=== PATIENT | female | born 1940 | race Caucasian/White ===

== ENCOUNTER → 2016-08-20 | Outpatient (CLI) | payer OTHER ==
[~2016-08-20] MED LIST: ACT35 PO; ASCO1CAP3 PO; CALCTAB7 PO; CHOL100027 PO; CYCL5TAB PO; GLUC10007 PO; MCRK/10 PO; MULT-223 PO; POTA10CA PO; PRED10TA PO; SIMV5TAB5 OR; TRAM-10 PO; TRIA37.5 PO; TRIAM/HCTZ
--- NOTE | 2016-08-20 14:11 | DIAGNOSTIC IMAGING REPORT ---
LEFT KNEE 1 OR 2 VIEWS ROUTINE CLINICAL HISTORY: Limited range of motion. COMPARISON: None FINDINGS: Alignment of the left knee is anatomic. There is no fracture. There is a possible small left knee joint effusion. There is extensive chondrocalcinosis within the menisci. There is chondrocalcinosis within the joint space. There is mild joint space narrowing within the medial compartment with osteophytosis. IMPRESSION: 1. No acute fracture. 2. Small left knee joint effusion. 3. Extensive chondrocalcinosis. 4. Mild to moderate arthritis within the medial compartment of the left knee. Electronically signed by: Alex Lester M.D. 08/20/2016 2:10 PM Dictated Date/Time: 08/20/2016 2:09 PM
== END | disposition home or self-care (01) ==
LOC: C.RADBC 13:01
PROVIDERS: ATTEND Nurse Practitioner Family
DX: M11.262 Other chondrocalcinosis, left knee (principal); M17.12 Unilateral primary osteoarthritis, left knee

== ENCOUNTER 2017-01-31 14:05 | Emergency (ER) | payer OTHER ==
[~2017-01-31] VITALS: Ht 162.6 cm; Wt 83.8 kg
[~2017-01-31 14:05] MED LIST changes: -ASCO1CAP3 PO; -CALCTAB7 PO; -CHOL100027 PO; -CYCL5TAB PO; -GLUC10007 PO; -MCRK/10 PO; -MULT-223 PO; -PRED10TA PO; -TRAM-10 PO; -TRIA37.5 PO
[2017-01-31 14:09] VITALS: TEMP 36.7; Ht 162.6 cm; Wt 83.8 kg
[2017-01-31] MEDS ORDERED: ONDANSETRON INJ 2 MG/ML 2 ML VIAL IV STA (14:32)
[2017-01-31] MEDS ORDERED: FENTANYL CITRATE INJ 50 MCG/1 ML 2 ML VIAL IV STA (14:32)
--- NOTE | 2017-01-31 14:55 | DIAGNOSTIC IMAGING REPORT ---
CHEST ONE VIEW PORTABLE CLINICAL HISTORY: Neck pain. Headache. COMPARISON STUDY: Chest radiograph July 31, 2012. FINDINGS: Lung volumes are normal. There is no consolidation to suggest pneumonia. No pneumothorax or pleural effusion is present. Cardiac size is normal. Mediastinal contours are normal. IMPRESSION: No acute cardiopulmonary findings. Electronically signed by: Alex Lester M.D. 01/31/2017 2:53 PM Dictated Date/Time: 01/31/2017 2:53 PM
[2017-01-31 15:27] LABS: BASO % 0.5 %; BASO ABS # 0.05 K/uL (0-0.2); COMPLETE YES; EOS % 2.1 %; HEMATOCRIT 43.3 % (37-47); IG% 0.1 %; LYMPH % 17.9 %; LYMPH ABS # 1.85 K/uL (1.2-3.4); MEAN CELL VOLUME 94.1 fL (80-100); MEAN CORPUSCULAR HEMOGLOBIN 32.4 pg (25-34); MEAN CORPUSCULAR HGB CONC 34.4 g/dl (32-36); MEAN PLATELET VOLUME 10.5 fL (7.4-10.4); MONO % 5.8 %; NEUT % 73.6 %; PLATELET COUNT 283 K/uL (130-400); WHITE BLOOD COUNT 10.34 K/uL (4.8-10.8)
--- NOTE | 2017-01-31 15:29 | EMERGENCY ROOM VISIT NOTE ---
History Report prepared by Vanessa: Salma Smith Under the Supervision of: Dr. Nikki Salinas M.D. First contact with patient: 14:26 Chief Complaint: HEADACHE Stated Complaint: SEVERE NECK AND HEADACHES History of Present Illness The patient is a 76 year old female who presents to the Emergency Room with complaints of severe and worsening headache and neck pain starting about a week ago. She describes pain radiation from the right side of her neck to the right side of her head. She denies any pain radiation to her arm. She has neck pain when she goes to sleep in an awkward position but the neck pain has never radiated to her head. The patient was traveling to [place] on an airplane when she had an onset of her pain. She states that she might have fallen asleep during the plane ride. The patient was evaluated by her chiropractor without relief. She states that her chiropractor did not manipulate her neck. She has also been taking Aspirin with some relief. She reports a normal appetite and a normal fluid intake. She denies any recent head trauma/injuries, speech/vision issues, nausea, vomiting, or any other complaints. She has a history of breast cancer. She is a never smoker. Source of History: patient Onset: about a week ago Position: head, neck Symptom Intensity: severe Timing: worsening Modifying Factors (Relieving): other (Aspirin with some relief, chiropractor without relief) Associated Symptoms: No nausea, No vomiting Review of Systems See HPI for pertinent positives & negatives. A total of 10 systems reviewed and were otherwise negative. Past Medical & Surgical Medical Problems: (1) Breast cancer Surgical Problems: (1) H/O mastectomy (2) History of appendectomy Family History Cancer Heart disease Lung disease Social History Smoking Status: Never Smoker Alcohol Use: occasionally Marital Status: Housing Status: lives with significant other Current/Historical Medications Scheduled Ascorbic Acid (Vitamin C), 1 CAP PO DAILY Calcium Carbonate-Vitamin D W/ (Caltrate 600 Plus), 1 TAB PO BID Cholecalciferol (Vitamin D 1000 Unit), 1,000 INTER.UNIT PO DAILY Glucosamine Sulfate (Glucosamine), 1,000 MG PO DAILY Multiple Vitamins W/ Minerals (Multi For Her 50+), 1 TAB PO DAILY Potassium Chloride (K-Tabs), 30 MEQ PO BID Prednisone Tab (Prednisone), 10 MG PO DIRECTED Simvastatin (Zocor), 5 MG OR DAILY Triamterene/Hctz (Dyazide 37.5MG/25MG), 1 TAB PO DAILY Scheduled PRN Cyclobenzaprine Hcl (Flexeril), 5 MG PO TID PRN for Muscle Spasms Tramadol (Ultram), 1 TABS PO Q6 PRN for Pain Allergies Coded Allergies: No Known Allergies (Unverified , 01/31/17) Physical Exam Vital Signs Date Time Temp Pulse Resp B/P (MAP) Pulse Ox O2 Delivery O2 Flow Rate FiO2 01/31/17 20:15 66 18 185/96 97 01/31/17 18:46 77 20 195/86 99 Room Air 01/31/17 16:30 64 20 163/86 98 Room Air 01/31/17 15:00 61 01/31/17 14:09 36.7 76 22 204/97 98 Room Air Physical Exam Vital signs reviewed. General: Elderly, well-appearing, in no significant distress, ambulating without difficulty, neurologically intact. HEENT: No scleral icterus, PERRLA, neck supple. Atraumatic. No tenderness to palpation acing the cervical spine. No meningeal signs but limited range of motion of the neck from side to side secondary to discomfort. Cardiovascular: Regular rate and rhythm, no extra sounds. Pulmonary: Clear to auscultation bilaterally, normal work of breathing. Abdomen: Soft, nontender, nondistended, positive bowel sounds. Musculoskeletal: Atraumatic, no peripheral edema. Neurologic: Patient awake alert and oriented x 3, full strength in all 4 extremities. Cranial nerves 2 through 12 grossly intact. Skin: Warm, dry, no rash Medical Decision & Procedures ER Provider Diagnostic Interpretation: X-ray results as stated below per interpretation by me and the radiologist: CHEST ONE VIEW PORTABLE CLINICAL HISTORY: Neck pain. Headache. COMPARISON STUDY: Chest radiograph July 31, 2012. FINDINGS: Lung volumes are normal. There is no consolidation to suggest pneumonia. No pneumothorax or pleural effusion is present. Cardiac size is normal. Mediastinal contours are normal. IMPRESSION: No acute cardiopulmonary findings. Electronically signed by: Alex Lester M.D. 01/31/2017 2:53 PM Dictated Date/Time: 01/31/2017 2:[address] ANGIOGRAM OF THE BRAIN; CT ANGIOGRAM OF THE NECK CLINICAL HISTORY: Headache. Neck pain. COMPARISON STUDY: Carotid artery ultrasound dated 10/13/2016. Unenhanced CT of the brain performed the same day 01/31/2017. TECHNIQUE: Following the IV administration of 112 of Optiray 320, CT angiogram of the head and neck was performed from the aortic arch to the vertex. Images are reviewed in the axial, sagittal, and coronal planes. 3-D MIPS images are created and assessed. IV contrast was administered without complication. All measurements were calculated based on NASCET criteria. CT DOSE: 527.37 mGy.cm FINDINGS: Brain parenchyma: There are age-related involutional changes noting minimal periventricular microangiopathic disease. There is no hemorrhage, mass effect, or evidence of acute territorial ischemia by CT criteria. There is no evidence of enhancing mass lesion on the angiogram phase images. The ventricles, sulci, and cisterns are normal in configuration. Horta-white matter differentiation is preserved. No extra-axial fluid collection is seen. Thoracic aorta: There is atherosclerotic calcification of the visualized thoracic aorta. Imaged portions of the thoracic aorta are normal in caliber. The aortic arch demonstrates standard 3-vessel anatomy. Right carotid arterial system: The right common carotid artery is widely patent, as are the right internal and external carotid arteries. Atherosclerotic calcification is noted in the carotid bulb. Left carotid arterial system: The left common carotid artery is widely patent, as are the left internal and external carotid arteries. Atherosclerotic calcification is noted in the carotid bulb. Vertebral arteries: The vertebral arteries are widely patent noting right-sided dominance. Subclavian arteries: Widely patent bilaterally. Intracranial vasculature: There is origin of the right posterior cerebral artery. A left posterior communicating artery is identified. The internal carotid arteries are patent at the skull base, as are the anterior and middle cerebral arteries bilaterally. The vertebrobasilar system and posterior cerebral arteries are widely patent. The right vertebral artery is dominant. There is no aneurysm, high-grade stenosis, or focal vessel cut off seen throughout the intracranial circulation. Jugular veins: Widely patent bilaterally. Dural sinuses: Patent. Lung apices: There is biapical scarring. Imaged upper lobe lung parenchyma is clear. Soft tissues: The visualized pharyngeal soft tissues are normal in appearance noting angiographic phase technique. The oropharyngeal airway appears widely patent. The salivary and thyroid glands are normal in appearance. No cervical lymphadenopathy is seen. Skeletal structures: The calvarium and cervical spine appear intact. There is moderate multilevel cervical spondylosis. Sinuses and mastoids: The paranasal sinuses are clear. The mastoid air cells are well pneumatized. IMPRESSION: 1. There is no hemorrhage, mass effect, or evidence of acute territorial ischemia by CT criteria. 2. Unremarkable CT angiogram of the brain. 3. Unremarkable ct angio of the neck. Electronically signed by: Gabino Banuelos M.D. 01/31/2017 6:52 PM Dictated Date/Time: 01/31/2017 6:[address] DOSE: HISTORY: Breast CA, neck pain TECHNIQUE: Multiaxial CT images of the cervical spine were performed and reformatted in the sagittal and coronal plane without the use of contrast. COMPARISON: None. FINDINGS: No fractures. Prevertebral soft tissues and the C1-C2 interval are intact. No pneumothorax. There is 2 mm of anterolisthesis of C4 and C5. This is likely due to the long-standing degenerative change. The bilateral C3-C5 facets are fused. No suspicious lytic or blastic osseous lesions. Severe disc space narrowing at C5-C6 and C6-C7 with small endplate osteophytes. There is mild central canal narrowing at these levels. IMPRESSION: No fractures within the cervical spine. Electronically signed by: Iván Correa M.D. 01/31/2017 3:46 PM Dictated Date/Time: 01/31/2017 3:[address] OF THE HEAD WITHOUT CONTRAST CLINICAL HISTORY: Neck pain and headache. History of breast cancer. COMPARISON STUDY: No previous studies for comparison. CT DOSE: 963.13 mGy.cm TECHNIQUE: Helical axial images of the head were obtained without IV contrast. Automated exposure control was utilized for the study. FINDINGS: No acute intracranial hemorrhage, midline shift or mass effect is present. Ventricular system is normal. Basilar cisterns are patent. There are no extra-axial collections. Horta-white differentiation is maintained. Mild white matter hypodensity suggests small vessel disease. There are no findings to suggest acute dural sinus thrombosis or acute territorial infarct. There are no significant calvarial abnormalities. Visualized portions of the sinuses and mastoid air cells are clear. IMPRESSION: No acute intracranial findings. Electronically signed by: Alex Lester M.D. 01/31/2017 3:47 PM Dictated Date/Time: 01/31/2017 3:34 PM Laboratory Results 01/31/17 15:15 Red Blood Count 4.60, Mean Corpuscular Volume 94.1, Mean Corpuscular Hemoglobin 32.4, Mean Corpuscular Hemoglobin Concent 34.4, Mean Platelet Volume 10.5, Neutrophils (%) (Auto) 73.6, Lymphocytes (%) (Auto) 17.9, Monocytes (%) (Auto) 5.8, Eosinophils (%) (Auto) 2.1, Basophils (%) (Auto) 0.5, Neutrophils # (Auto) 7.61, Lymphocytes # (Auto) 1.85, Monocytes # (Auto) 0.60, Eosinophils # (Auto) 0.22, Basophils # (Auto) 0.05 01/31/17 15:15 Test 01/31/17 15:15 White Blood Count 10.34 K/uL (4.8-10.8) Red Blood Count 4.60 M/uL (4.2-5.4) Hemoglobin 14.9 g/dL (12.0-16.0) Hematocrit 43.3 % (37-47) Mean Corpuscular Volume 94.1 fL (80-100) Mean Corpuscular Hemoglobin 32.4 pg (25-34) Mean Corpuscular Hemoglobin Concent 34.4 g/dl (32-36) Platelet Count 283 K/uL (130-400) Mean Platelet Volume 10.5 fL (7.4-10.4) Neutrophils (%) (Auto) 73.6 % Lymphocytes (%) (Auto) 17.9 % Monocytes (%) (Auto) 5.8 % Eosinophils (%) (Auto) 2.1 % Basophils (%) (Auto) 0.5 % Neutrophils # (Auto) 7.61 K/uL (1.4-6.5) Lymphocytes # (Auto) 1.85 K/uL (1.2-3.4) Monocytes # (Auto) 0.60 K/uL (0.11-0.59) Eosinophils # (Auto) 0.22 K/uL (0-0.5) Basophils # (Auto) 0.05 K/uL (0-0.2) RDW Standard Deviation 48.3 fL (36.4-46.3) RDW Coefficient of Variation 14.1 % (11.5-14.5) Immature Granulocyte % (Auto) 0.1 % Immature Granulocyte # (Auto) 0.01 K/uL (0.00-0.02) Prothrombin Time 10.4 SECONDS (9.0-12.0) Prothromb Time International Ratio 1.0 (0.9-1.1) Activated Partial Thromboplast Time 30.4 SECONDS (21.0-31.0) Partial Thromboplastin Ratio 1.2 Anion Gap 7.0 mmol/L (3-11) Est Creatinine Clear Calc Drug Dose 54.2 ml/min Estimated GFR () 70.5 Estimated GFR (Non- 60.9 BUN/Creatinine Ratio 15.3 (10-20) Calcium Level 9.6 mg/dl (8.5-10.1) Total Bilirubin 0.3 mg/dl (0.2-1) Direct Bilirubin 0.1 mg/dl (0-0.2) Aspartate Amino Transf (AST/SGOT) 20 U/L (15-37) Alanine Aminotransferase (ALT/SGPT) 26 U/L (12-78) Alkaline Phosphatase 74 U/L (45-117) Total Protein 7.2 gm/dl (6.4-8.2) Albumin 3.7 gm/dl (3.4-5.0) Laboratory results per my review. Medications Administered Medications (Trade) Dose Ordered Sig/Octaviano Route Start Time Stop Time Status Last Admin Dose Admin Fentanyl Citrate (Fentanyl Inj) 50 mcg NOW STAT IV 01/31/17 14:32 01/31/17 14:34 DC 01/31/17 15:15 50 MCG Ondansetron HCl (Zofran Inj) 4 mg NOW STAT IV 01/31/17 14:32 01/31/17 14:34 DC 01/31/17 15:15 4 MG Hydralazine HCl (Apresoline Tab) 25 mg NOW STAT PO 01/31/17 18:56 01/31/17 18:57 DC 01/31/17 19:19 25 MG Prednisone (PredniSONE TAB) 60 mg NOW STAT PO 01/31/17 19:56 01/31/17 19:57 DC 01/31/17 20:15 60 MG Cyclobenzaprine HCl (FLEXERIL 10MG Home Pack) 1 homepack UD ONCE PO 01/31/17 20:00 01/31/17 20:01 DC 01/31/17 20:15 1 HOMEPACK Tramadol HCl (Ultram Home Pack) 1 homepack UD ONCE PO 01/31/17 20:00 01/31/17 20:01 DC 01/31/17 20:15 1 HOMEPACK ECG Indication: other (Headache) Rate (beats per minute): 65 Rhythm: normal sinus Findings: no acute ischemic change, no ectopy ED Course 1426: Past medical records reviewed. The patient was evaluated in room C09. A complete history and physical examination was performed. 1432: Zofran Inj 4 mg IV, Fentanyl Inj 50 mcg IV 1855: Hydralazine HCl 25 mg PO 1955: Flexeril Tab 5 mg PO, Prednisone 60 mg PO 1999: Tramadol HCl 1 home pack PO, Cyclobenzaprine HCl 1 home pack PO. Upon reevaluation, the patient appeared to have improvement of her symptoms. I discussed findings with her. She verbalized agreement of the treatment plan. She was discharged home. Medical Decision Medication Reconciliation: I attest that I have personally reviewed the patient' s current medication list. Blood Pressure Screening: Patient was found to have an elevated blood pressure and was referred to their primary doctor for recheck and further treatment. DDx: Intracranial hemorrhage, intracranial mass, migraine headache, tension headache , sinusitis, meningitis This patient was evaluated and appeared to be in some discomfort. IV access was obtained and laboratory work was drawn. The patient was placed on the court recording monitor and found to be in a normal sinus rhythm. Patient was hydrated with normal saline solution. Patient was given IV fentanyl, IV Zofran and oral hydralazine for an elevated blood pressure. CT scans of the head and neck were performed and reveals no evidence of acute findings. CT angiograms of the head and neck were performed and reveal no evidence of acute findings. Pt will f/u with her PCP this week for reevaluation, BP recheck and further management, ? PT. She was given Prednisone, Flexeril and Ultram. Impression Primary Impression: Headache Additional Impression: Cervical strain Scribe Attestation The scribe's documentation has been prepared under my direction and personally reviewed by me in its entirety. I confirm that the note above accurately reflects all work, treatment, procedures, and medical decision making performed by me. Departure Information Dispostion Home / Self-Care Prescriptions Tramadol (Ultram) 50 Mg Tab 1 TABS PO Q6 Y for Pain, #30 TAB Prov: Nikki Salinas M.D. 01/31/17 Cyclobenzaprine Hcl (FLEXERIL) 5 Mg Tab 5 MG PO TID Y for Muscle Spasms, #21 TAB Prov: Nikki Salinas M.D. 01/31/17 Prednisone Tab (PREDNISONE) 10 Mg Tab 10 MG PO DIRECTED, #31 TAB 40 mg for 4 days, 30 mg for 3 days, 20 mg for 2 days, 10 mg for 2 days Prov: Nikki Salinas M.D. 01/31/17 Referrals No Doctor, Assigned (PCP) Forms HOME CARE DOCUMENTATION FORM, IMPORTANT VISIT INFORMATION Patient Instructions My [facility] Additional Instructions Diagnosis: Headache, cervical strain Flexeril 5 mg 3 times a day as needed for muscular spasm. Do not drive on this medication Prednisone 40 mg for 4 days, 30 mg for 3 days, 20 mg for 2 days, 10 mg for 2 days. Ultram 50 mg every 6 hours as needed for pain. Warm compresses and gentle stretching. Follow-up with your physician on Friday for reevaluation and consideration of referral to physical therapy. Return to the emergency department for worsening of symptoms or any medical concerns. Problem Qualifiers Primary Impression: Headache Headache chronicity pattern: acute headache Intractability: intractable
[2017-01-31 15:40] LABS: PARTIAL THROMBOPLASTIN RATIO 1.2; PROTHROMBIN TIME (PATIENT) 10.4 SECONDS (9.0-12.0)
[2017-01-31 15:44] LABS: BUN/CREATININE RATIO 15.3 (10-20); CALCIUM 9.6 mg/dl (8.5-10.1); CREATININE 0.91 mg/dl (0.60-1.20); POTASSIUM 3.3 mmol/L (3.5-5.1)
--- NOTE | 2017-01-31 15:47 | DIAGNOSTIC IMAGING REPORT ---
CERVICAL SPINE CT CT DOSE: HISTORY: Breast CA, neck pain TECHNIQUE: Multiaxial CT images of the cervical spine were performed and reformatted in the sagittal and coronal plane without the use of contrast. COMPARISON: None. FINDINGS: No fractures. Prevertebral soft tissues and the C1-C2 interval are intact. No pneumothorax. There is 2 mm of anterolisthesis of C4 and C5. This is likely due to the long-standing degenerative change. The bilateral C3-C5 facets are fused. No suspicious lytic or blastic osseous lesions. Severe disc space narrowing at C5-C6 and C6-C7 with small endplate osteophytes. There is mild central canal narrowing at these levels. IMPRESSION: No fractures within the cervical spine. Electronically signed by: Iván Correa M.D. 01/31/2017 3:46 PM Dictated Date/Time: 01/31/2017 3:38 PM
--- NOTE | 2017-01-31 15:48 | DIAGNOSTIC IMAGING REPORT ---
CT OF THE HEAD WITHOUT CONTRAST CLINICAL HISTORY: Neck pain and headache. History of breast cancer. COMPARISON STUDY: No previous studies for comparison. CT DOSE: 963.13 mGy.cm TECHNIQUE: Helical axial images of the head were obtained without IV contrast. Automated exposure control was utilized for the study. FINDINGS: No acute intracranial hemorrhage, midline shift or mass effect is present. Ventricular system is normal. Basilar cisterns are patent. There are no extra-axial collections. Horta-white differentiation is maintained. Mild white matter hypodensity suggests small vessel disease. There are no findings to suggest acute dural sinus thrombosis or acute territorial infarct. There are no significant calvarial abnormalities. Visualized portions of the sinuses and mastoid air cells are clear. IMPRESSION: No acute intracranial findings. Electronically signed by: Alex Lester M.D. 01/31/2017 3:47 PM Dictated Date/Time: 01/31/2017 3:34 PM
[2017-01-31] MEDS ORDERED: ASCO1CAP3 PO (15:50)
[2017-01-31] MEDS ORDERED: MULT-223 PO (15:50)
[2017-01-31] MEDS ORDERED: MCRK/10 PO (15:50)
[2017-01-31] MEDS ORDERED: GLUC10007 PO (15:50)
[2017-01-31] MEDS ORDERED: CHOL100027 PO (15:50)
[2017-01-31] MEDS ORDERED: TRIA37.5 PO (15:50)
[2017-01-31] MEDS ORDERED: CALCTAB7 PO (15:50)
[2017-01-31] MEDS ORDERED: OPTIRAY 320 IV PRN (18:30)
--- NOTE | 2017-01-31 18:53 | DIAGNOSTIC IMAGING REPORT ---
CT ANGIOGRAM OF THE BRAIN; CT ANGIOGRAM OF THE NECK CLINICAL HISTORY: Headache. Neck pain. COMPARISON STUDY: Carotid artery ultrasound dated 10/13/2016. Unenhanced CT of the brain performed the same day 01/31/2017. TECHNIQUE: Following the IV administration of 112 of Optiray 320, CT angiogram of the head and neck was performed from the aortic arch to the vertex. Images are reviewed in the axial, sagittal, and coronal planes. 3-D MIPS images are created and assessed. IV contrast was administered without complication. All measurements were calculated based on NASCET criteria. CT DOSE: 527.37 mGy.cm FINDINGS: Brain parenchyma: There are age-related involutional changes noting minimal periventricular microangiopathic disease. There is no hemorrhage, mass effect, or evidence of acute territorial ischemia by CT criteria. There is no evidence of enhancing mass lesion on the angiogram phase images. The ventricles, sulci, and cisterns are normal in configuration. Horta-white matter differentiation is preserved. No extra-axial fluid collection is seen. Thoracic aorta: There is atherosclerotic calcification of the visualized thoracic aorta. Imaged portions of the thoracic aorta are normal in caliber. The aortic arch demonstrates standard 3-vessel anatomy. Right carotid arterial system: The right common carotid artery is widely patent, as are the right internal and external carotid arteries. Atherosclerotic calcification is noted in the carotid bulb. Left carotid arterial system: The left common carotid artery is widely patent, as are the left internal and external carotid arteries. Atherosclerotic calcification is noted in the carotid bulb. Vertebral arteries: The vertebral arteries are widely patent noting right-sided dominance. Subclavian arteries: Widely patent bilaterally. Intracranial vasculature: There is origin of the right posterior cerebral artery. A left posterior communicating artery is identified. The internal carotid arteries are patent at the skull base, as are the anterior and middle cerebral arteries bilaterally. The vertebrobasilar system and posterior cerebral arteries are widely patent. The right vertebral artery is dominant. There is no aneurysm, high-grade stenosis, or focal vessel cut off seen throughout the intracranial circulation. Jugular veins: Widely patent bilaterally. Dural sinuses: Patent. Lung apices: There is biapical scarring. Imaged upper lobe lung parenchyma is clear. Soft tissues: The visualized pharyngeal soft tissues are normal in appearance noting angiographic phase technique. The oropharyngeal airway appears widely patent. The salivary and thyroid glands are normal in appearance. No cervical lymphadenopathy is seen. Skeletal structures: The calvarium and cervical spine appear intact. There is moderate multilevel cervical spondylosis. Sinuses and mastoids: The paranasal sinuses are clear. The mastoid air cells are well pneumatized. IMPRESSION: 1. There is no hemorrhage, mass effect, or evidence of acute territorial ischemia by CT criteria. 2. Unremarkable CT angiogram of the brain. 3. Unremarkable ct angio of the neck. Electronically signed by: Gabino Banuelos M.D. 01/31/2017 6:52 PM Dictated Date/Time: 01/31/2017 6:28 PM
[2017-01-31] MEDS ORDERED: CYCL5TAB PO (19:49)
[2017-01-31] MEDS ORDERED: PRED10TA PO (19:49)
[2017-01-31] MEDS ORDERED: TRAM-10 PO (19:49)
[2017-01-31] MEDS ORDERED: CYCLOBENZAPRINE HCL 10 MG TAB PO STA (19:56)
[2017-01-31] MEDS ORDERED: TRAMADOL HCL 50 MG HOME PACK PO ONE (20:00)
[2017-01-31] MEDS ORDERED: FLEXERIL HOME PACK 10 MG VIAL PO ONE (20:00)
[2017-01-31 20:15] VITALS: BP 185/96; PULSE 66; O2SAT 97
== END 2017-01-31 20:17 | disposition home or self-care (01) ==
LOC: C.EDB 14:07 → C.EDC 20:17
DX: R51 Headache (principal); S16.1XXA Strain of muscle, fascia and tendon at neck level, initial encounter; X58.XXXA Exposure to other specified factors, initial encounter; Z85.3 Personal history of malignant neoplasm of breast

== ENCOUNTER → 2017-09-15 | Outpatient (CLI) | payer OTHER ==
[~2017-09-15] MED LIST changes: -ACT35 PO; +ASCO1CAP3 PO; +CALCTAB7 PO; +CHOL100027 PO; +GLUC10007 PO; +MCRK/10 PO; +MULT-223 PO; -POTA10CA PO; +TRIA37.5 PO; -TRIAM/HCTZ
== END | disposition home or self-care (01) ==
LOC: C.MAMM 09:54
PROVIDERS: ATTEND Nurse Practitioner Family
DX: M85.851 Other specified disorders of bone density and structure, right thigh (principal)

== ENCOUNTER → 2018-03-25 | Outpatient (CLI) | payer OTHER ==
--- NOTE | 2018-03-25 13:37 | MAMMOGRAPHY REPORT ---
ULTRASOUND OF RIGHT BREAST: 03/25/2018 CLINICAL HISTORY: History of bilateral mastectomy. The patient reports intermittent pain involving th e lateral and inferior aspect of her right mastectomy bed. She reports that her provider felt a palpa ble lump in the region of the pains during her clinical breast exam. BRCA2 gene mutation positive. COMPARISON: Comparison is made to exams dated: 03/04/2016 ultrasound, 03/16/2015 ultrasound, 02/17/2013 ultrasound, and 08/18/2009 consultation - [facility]. Findings: Real-time, high-resolution ultrasound was performed of the area of intermittent pain pointe d out by the patient in the right lateral and inferior aspect of the right mastectomy bed. The patie nt could not pinpoint the location of the lump felt by her referring provider, however, the patient r eported the lump was in the same region as her pain. No suspicious masses or other suspicious sonogr aphic abnormalities were evident in this region. IMPRESSION: ACR BI-RADS CATEGORY 2: BENIGN No sonographic abnormality in the right lateral and inferior aspect of the right mastectomy bed, in t he region of intermittent pain pointed out by the patient. Note that the patient could not pinpoint the exact location of the lump felt by the referring provider. There is no sonographic evidence of m alignancy. Recommend clinical follow-up; any decision to biopsy should be based on clinical grounds. The patient was verbally notified of the results. Senia Escalante M.D. ah/:03/25/2018 11:58:19 Mirror Painter: RT Christine(Mellisa)(Shanae), [facility] letter sent: Normal 1/2 BI-RADS Code: ACR BI-RADS Category 2: Benign
== END | disposition home or self-care (01) ==
LOC: C.MAMM 10:54
PROVIDERS: ATTEND Nurse Practitioner Family
DX: R22.2 Localized swelling, mass and lump, trunk (principal); Z90.13 Acquired absence of bilateral breasts and nipples; Z85.3 Personal history of malignant neoplasm of breast

== ENCOUNTER 2019-06-23 15:03 | Inpatient (IN) ==
[2019-06-23 15:49] LABS: Basophils # (auto) 0.05 K/uL (0-0.2); Basophils % (auto) 0.6 %; Eosinophils # (auto) 0.17 K/uL (0-0.5); Hematocrit (blood only) 44.4 % (37-47); Hemoglobin 15.2 g/dL (12.0-16.0); Immature Granulocytes # (auto) 0.01 K/uL (0.00-0.02); Immature Granulocytes % (auto) 0.1 %; Lymphocytes # (auto) 2.12 K/uL (1.2-3.4); Lymphocytes % (auto) 24.8 %; Mean Corpuscular Hemoglobin 32.9 pg (25-34); Mean Corpuscular Hgb Conc 34.2 g/dL (32-36); Mean Corpuscular Volume 96.1 fL (80-100); Mean Platelet Volume 11.2 fL (7.4-10.4); Monocytes # (auto) 0.65 K/uL (0.11-0.59); Monocytes % (auto) 7.6 %; Neutrophils # (auto) 5.56 K/uL (1.4-6.5); Neutrophils % (auto) 64.9 %; Platelet Count 260 K/uL (130-400); RDW Coefficient of Variation 14.1 % (11.5-14.5); RDW Standard Deviation 49.7 fL (36.4-46.3); Red Blood Count 4.62 M/uL (4.2-5.4); White Blood Count 8.56 K/uL (4.8-10.8)
[2019-06-23 15:57] LABS: BUN Creatinine Ratio 14.5 (10-20); Blood Urea Nitrogen 15 mg/dl (7-18); Calcium 9.6 mg/dl (8.5-10.1); Carbon Dioxide 28 mmol/L (21-32); Chloride 102 mmol/L (98-107); Creatinine Clr Calc Pharmacy 44.6 ml/min; Est GFR (African American) 58.8; Est GFR (Non-African American) 50.7; Glucose 103 mg/dl (70-99); Potassium 3.2 mmol/L (3.5-5.1); Sodium 138 mmol/L (136-145)
[2019-06-23 16:02] LABS: Troponin I < 0.015 ng/ml (0-0.045)
--- NOTE | 2019-06-23 16:10 | CT Scan Report ---
HEAD CT NONCONTRAST CT DOSE: 638.56 mGycm HISTORY: Visual disturbance, acute headache TECHNIQUE: Multiaxial CT images of the head were performed without the use of intravenous contrast. A utomated exposure control was utilized for this study. A dose lowering technique was utilized adheri ng to the principles of ALARA. Comparison: Head CT 01/31/2017. Findings: The paranasal sinuses and mastoid air cells are clear. The calvarium and skull base are int act. The ventricles and sulci are within normal limits. There is no mass, hematoma, midline shift, or acute infarct. Impression: No acute intracranial abnormality. Electronically signed by: Iván Correa M.D. 06/23/2019 4:08 PM
[2019-06-23] MEDS ORDERED: LABETALOL HCL IV 5 MG/ML 20ML IV STA (16:13)
[2019-06-23 16:18] LABS: Appearance Urine Clear (Clear); Bacteria Urine Automated Negative (Negative); Bilirubin Urine Negative (Negative); Blood Urine Negative (Negative); Cast Urine Automated 0 /lpf (0-5); Color Urine Yellow; Epithelial Cell Urine Auto 20-30 /lpf (0-5); Glucose Urine UA Negative (Negative); Ketones Urine Negative (Negative); Leukocyte Esterase Urine 1+ (Negative); Nitrite Urine Negative (Negative); Protein Urine Negative (Negative); RBC Urine Automated 0-4 /hpf (0-4); Specific Gravity Urine 1.008 (1.000-1.030); Urobilinogen Urine Negative (Negative); pH Urine 6.5 (4.5-7.5)
[2019-06-23] MEDS ORDERED: HydrALAZINE HCL 20 MG/ML VIAL IV ONE (16:44)
[2019-06-23] MEDS ORDERED: ASPIRIN 81 MG CHEW PO STA (16:47)
--- NOTE | 2019-06-23 16:48 | Emergency Department Note ---
Entered by Rebekah Barry acting as a scribe for Wilfredo Cardona MD History of Present Illness General Chief complaint: Neuro Symptoms/Deficit Stated complaint: VISION PROBLEMS, HEADACHE Time Seen by Provider: 06/23/19 15:31 History of Present Illness Maximum Pain Intensity: 5 Home Medications Home Medications Medication Instructions Recorded Confirmed Type SIMVASTATIN (ZOCOR) 5 mg OR DAILY #0 10/31/09 History ASCORBIC ACID (VITAMIN C) 1 cap PO DAILY #0 01/31/17 History CALCIUM CARBONATE-VITAMIN D W/ 1 tab PO BID #0 tab 01/31/17 History (CALTRATE 600 PLUS) CHOLECALCIFEROL (VITAMIN D 1000 1,000 inter.unit PO DAILY #0 cap 01/31/17 History UNIT) Glucosamine Sulfate (Glucosamine) 1,000 mg PO DAILY #0 tab 01/31/17 History MULTIPLE VITAMINS W/ MINERALS 1 tab PO DAILY #0 01/31/17 History (MULTI FOR HER 50+) Potassium Chloride (K-Tabs) 30 meq PO BID #0 01/31/17 History Triamterene/Hctz (Dyazide 1 tab PO DAILY #0 cap 01/31/17 History 37.5MG/25MG) Allergies Allergy/AdvReac Type Severity Reaction Status Date / Time No Known Allergies Allergy Unverified 01/31/17 15:52 Past Med/Surg History Social History Preferred Language: Pashto Feels Safe at Home: Yes Smoking Status: Never smoker Physical Exam Vital Signs Vital Signs - 24 hr 06/23/19 15:07 Temperature 36.6 C Temperature Source Oral Pulse Rate 73 Respiratory Rate 18 Blood Pressure 190/78 H Blood Pressure Mean 115 Pulse Oximetry 100 Oxygen Delivery Method Room Air Sepsis Recent Fever Within 48 Hours No Sepsis New/Unexplained Change in Mental Status No Sepsis Action Taken by Nursing No Action Required Discharge Plan Visit Data Chief Complaint: Neuro Symptoms/Deficit Stated Complaint: VISION PROBLEMS, HEADACHE ED Provider: Wilfredo Cardona Prescriptions Prescriptions: No Action SIMVASTATIN (ZOCOR) 5 MG tablet 5 mg OR DAILY Qty: 0 RF: 0 ASCORBIC ACID (VITAMIN C) 500 MG capsule 1 cap PO DAILY Qty: 0 RF: 0 CALCIUM CARBONATE-VITAMIN D W/ (CALTRATE 600 PLUS) 1 TAB tablet 1 tab PO BID Qty: 0 RF: 0 CHOLECALCIFEROL (VITAMIN D 1000 UNIT) 1,000 UNIT capsule 1,000 inter.unit PO DAILY Qty: 0 RF: 0 Glucosamine Sulfate (Glucosamine) 1,000 MG tablet 1,000 mg PO DAILY Qty: 0 RF: 0 MULTIPLE VITAMINS W/ MINERALS (MULTI FOR HER 50+) 1 TAB tablet 1 tab PO DAILY Qty: 0 RF: 0 Potassium Chloride (K-Tabs) 10 MEQ [id number] 30 meq PO BID Qty: 0 RF: 0 Triamterene/Hctz (Dyazide 37.5MG/25MG) capsule 1 tab PO DAILY Qty: 0 RF: 0 Medical Decision Making Laboratory Data Lab Results 06/23/19 Range/Units 15:19 POC Glucose 103 H (70-99)
--- NOTE | 2019-06-23 17:16 | History & Physical Report ---
Date of Service June 23, 2019 Assessment & Plan (1) TIA (transient ischemic attack): -Admit to PCU -Stroke order set completed -Neurochecks, speech eval and treat, no residual deficits/weakness, speech is clear, patient reporting visual disturbances now completely resolved. She does have a residual headache and bilateral posterior neck pain -Neurology consulted, Dr. Samuel -Allow for permissive hypertension-patient blood pressure has been elevated as an outpatient, possible that hypertensive urgency cause visual disturbances, see below -CT of the head negative for any acute findings -CT Angio of the head and neck ordered, follow -PT/OT consults, patient functions independently at home (2) HTN (hypertension): -Possible that hypertensive urgency caused visual disturbances vs TIA? - had previously been placed on valsartan and lisinopril however had adverse effects due to these medications and were discontinued. Pt reports outpt BP has been 150 in the last 4-5 mo, prior to this had a lower SBP ~110. -Continue HCTZ 1.5 tab p.o. QAM -Consider initiation of metoprolol with a.m. meds, pending CTA findings, allow IV lopressor prn -Patient denies any social circumstances, increased anxiety, etc to have elevated her BP. - Cont K+ supplementation with HCTZ -EKG reviewed showing sinus tach with first-degree AV block. No signs of ST wave inversions or acute ischemia (3) HLD (hyperlipidemia): -Continue on simvastatin 5 mg QPM (4) Actinic keratosis: - Continue fluorouracil topically BID - Follows with dermatology as an outpatient and was checked in their office earlier today. (5) Osteoarthritis: - Continue Vit D and calcium supplementation (6) DVT prophylaxis: -Teds CODE STATUS full code Disposition: Patient from home, CM consulted for discharge planning, PT/OT consult History of Present Illness Primary Care Provider: MEG Holly This is an 79 yo F with PMHx of HTN, HLD, osteoarthritis who presents with acute onset of visual disturbances with started around 2:30 PM. 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 This was not a formal appointment. She then proceeded to go to [facility] with her siblings for lunch. While she was sitting there she developed a visual disturbance which affected both eyes involving black lines and somewhat blurred vision. She felt that she would not be able to get up or drive herself home. Her siblings convinced her to go to the ER and drove her here themselves as she was hesitant. Since being in the ER the patient was found to be in hypertensive urgency with a SBP of 211/100. CT of the head was conducted and was negative for any acute findings. Patient notes that she has been following with her PCP as an outpatient due to elevated blood pressure. She was switched from hydrochlorothiazide to lisinopril however developed a cough thus that was discontinued. She was then trialed on valsartan however developed leg edema. She was then replaced back on hydrochlorothiazide at a double dose however found that she was having issues with incontinence, and finally was titrated down to 1.5 tablets QAM. She reports her blood pressure was not ideal even during the last visit where SBP = 150, which was about 2 months ago, and was planning on following up within the next 6 months with PCP. Blood work is WNL CT the head is negative EKG reviewed showing sinus tach with first-degree AV block. No signs of ST wave inversions or acute ischemia Allergies Allergy/AdvReac Type Severity Reaction Status Date / Time No Known Allergies Allergy Verified 06/23/19 16:46 Home Medications Home Medications Medication Instructions Recorded Confirmed Type ascorbic acid (vitamin C) 1,000 mg PO QAM 06/23/19 06/23/19 History calcium carbonate-vitamin D3 2 tab PO QAM 06/23/19 06/23/19 History [Caltrate 600 plus D] cholecalciferol (vitamin D3) 1,000 unit PO QAM 06/23/19 06/23/19 History [Vitamin D3] fluorouracil 1 applic TOPICAL BID 06/23/19 06/23/19 History glucosamine-chondroitin 1 tab PO BID 06/23/19 06/23/19 History bheavvbsmfvw-gkedrnzs-czizaf 1 tab PO QAM 06/23/19 06/23/19 History [Multivitamin 50 Plus] potassium chloride [K-Tab] 30 meq PO QAM 06/23/19 06/23/19 History simvastatin 5 mg PO QPM 06/23/19 06/23/19 History triamterene-hydrochlorothiazid 1.5 tab PO QAM 06/23/19 06/23/19 History Past Med/Surg History Medical History (Updated 06/23/19 @ 18:04 by Ivanna Sheikh PA-C) HLD (hyperlipidemia) HTN (hypertension) Social History Preferred Language: Singaporean Feels Safe at Home: Yes Smoking Status: Never smoker Review of Systems Review of Systems: Constitutional: No fever, sweats or chills Eyes: No diplopia, no worsening or blurred vision ENT: normal hearing, no trouble swallowing Respiratory: No cough, sputum, dyspnea at rest or on exertion Cardiovascular: No chest pain, tightness or palpitations Abdomen: No pain, nausea, vomiting, diarrhea or constipation Musculoskeletal: No joint pain, calf pain, swelling Neurologic: No weakness, numbness/tingling, or balance problems Psychiatric: No anxiety or depression Skin: No rash or itch Physical Exam Physical Exam: General: awake, alert, no apparent distress, appears younger than stated age Head: Normocephalic, atraumatic ENT: PERRL, EOMI, no pharyngeal exudate, mucous membranes moist Chest: Clear to auscultation, on room air, no adventitious breath sounds Cardiac: Regular rate and rhythm, +few PVCs, no murmur, no JVD, normal peripheral pulses, good capillary refill Abdominal: NABS x 4 quadrants, soft, nondistended, nontender to palpation, no rebound, guarding or tenderness Extremities: +multiple bright red lesions over BLE, +trace peripheral edema, calfs nontender to palpation Psych: Normal mood and affect Neuro: AAO x 3, strength intact bilaterally and rated 5/5, no gross motor deficits, speech is clear, no peripheral sensory deficits Skin: no rash or erythema Constitutional: WD/WN, vitals as above Eyes: normal visual hoffmann by confrontation and + anicteric sclerae Neck: normal visual inspection and trachea midline Respiratory: normal respiratory effort, lungs clear to auscultation Cardiovascular: Rate/Rhythm: regular rate and regular rhythm Gastrointestinal (Abdomen): Inspection/Auscultation: abdomen not distended Percussion/Palpation: abdomen soft; abdomen nontender Musculoskeletal: Head/Neck/Chest: normocephalic and head atraumatic Neg for peripheral LE edema, + pedal pulses Skin: no rashes, warm and dry Neurologic: awake; not confused Speech / Cognition: normal speech Psychiatric: A+Ox3, euthymic affect Lymphatic: Exam as done by Jeanie Negron DO Results & Data Vital Signs (Past 12 Hours) Vital Signs Temp Pulse Resp BP Pulse Ox 06/23/19 17:01 61 20 185/68 H 99 06/23/19 17:00 63 22 100 06/23/19 16:50 58 L 22 99 06/23/19 16:45 66 19 192/124 H 100 06/23/19 16:40 63 21 99 06/23/19 16:31 59 L 19 96 06/23/19 16:30 59 L 20 180/87 H 99 06/23/19 16:24 68 16 211/100 H 06/23/19 16:20 73 19 99 06/23/19 16:10 62 19 99 06/23/19 16:06 72 17 06/23/19 15:42 62 18 201/98 H 99 06/23/19 15:40 70 16 100 06/23/19 15:31 66 20 99 06/23/19 15:07 36.6 C 73 18 190/78 H [address] NON[address]AST CT DOSE: 638.56 mGycm HISTORY: Visual disturbance, acute headache TECHNIQUE: Multiaxial CT images of the head were performed without the use of intravenous contrast. Automated exposure control was utilized for this study. A dose lowering technique was utilized adhering to the principles of ALARA. Comparison: Head CT 01/31/2017. Findings: The paranasal sinuses and mastoid air cells are clear. The calvarium and skull base are intact. The ventricles and sulci are within normal limits. There is no mass, hematoma, midline shift, or acute infarct. Impression: No acute intracranial abnormality. ECG Additional Comments: 23-JUN-2019 15:18:42 [facility]-EDSTAT ROUTINE RETRIEVAL Sinus rhythm with occasional Premature ventricular complexes Possible Left atrial enlargement Borderline ECG When compared with ECG of 31-JAN-2017 14:48, Premature ventricular complexes are now Present 25mm/s 10mm/mV 150Hz 9.0.9 12SL 241 CLARENCE: 11 Referred by: REFERRED SELF Unconfirmed Vent. rate 71 BPM [place] interval 162 ms QRS duration 86 ms QT/QTc 384/417 ms P-R-T axes 58 3 24 Code Status & VTE Plan Code Status Full code-discussed with the patient and daughter at bedside Supervising Physician Co-Signing Physician Notes Pt seen and examined by me. She still has a mild headache and neck pain, but it is much improved from prior. Pt states her vision is at its usual now. Denies chest pain or SOB. Tolerating PO without issue. She has been working with PCP on HTN management since March, but has had issues with side effects with medications. Agree with HPI/ROS as noted by PA See above for my exam in PE section Agree with plan as outlined above Stroke like sx, resolved, likely related to HTN emergency BP is improved, but still elevated Further imaging as noted PG Care Time/CCT Total # of Minutes Spent Total Time Spent with Patient: Total time spent is greater than 50% in coordination of care (as documented) at patient's floor/unit and/or counseling patient:
[2019-06-23] MEDS ORDERED: OPTIRAY 320 125ml IV PRN (18:26)
--- NOTE | 2019-06-23 18:44 | CT Scan Report ---
CT angio head w con HISTORY: Mental status change R/o CVA, visual disturbances/headache TECHNIQUE: Multiaxial CT angiography of the head was performed IV contrast: 100 cc Maximum intensi ty projection images were also obtained. A dose lowering technique was utilized adhering to the prin ciples of NICKY. COMPARISON: None. FINDINGS: There is no mass, hematoma, midline shift, or acute infarct. Visualized intracranial epidemiology internship al carotid arteries, distal vertebral arteries, and basilar artery are widely patent. There is no sig nificant stenosis, occlusion, or aneurysm seen within the bilateral ACAs, MCAs, or batch tank controller. IMPRESSION: No significant stenosis, occlusion, or aneurysm within the [place]. The above report was generated using voice recognition software. It may contain grammatical, syntax or spelling errors. Electronically signed by: Issa Hutchinson M.D. 06/23/2019 6:43 PM
--- NOTE | 2019-06-23 18:47 | CT Scan Report ---
CT angio neck with con HISTORY: Mental status change R/o CVA, visual disturbances/headache TECHNIQUE: Multiaxial CT angiography of the neck was performed IV contrast: 100 cc All measurements were calculated based on NASCET criteria. Maximum intensity projection images were also obtained. A dose lowering technique was utilized adhering to the principles of ALARA. COMPARISON STUDY: None. FINDINGS: The aortic arch and proximal great vessels are widely patent. There is no significant sten osis, occlusion, or dissection identified within the bilateral common carotid, internal carotid, or v ertebral arteries. Moderate plaque formation the left and to lesser stent right carotid bifurcation. No major stenosis. IMPRESSION: No significant stenosis, occlusion, or dissection identified within the carotid or vertebral arteries . Moderate plaque formation bilaterally The above report was generated using voice recognition software. It may contain grammatical, syntax or spelling errors. Electronically signed by: Issa Hutchinson M.D. 06/23/2019 6:46 PM
[2019-06-23] MEDS ORDERED: METOPROLOL TARTRATE 1 MG/ML VIAL IV PRN (19:18)
[2019-06-23] MEDS ORDERED: ACETAMINOPHEN 325 MG TAB PO PRN (19:18)
[2019-06-23] MEDS ORDERED: PHARMACIST DISCHARGE MED REC CONSULT PRN (19:18)
[2019-06-23] MEDS ORDERED: ONDANSETRON INJ 2 MG/ML 2 ML VIAL IV PRN (19:18)
[2019-06-23] MEDS ORDERED: NON-FORMULARY MEDICATION (Glucosamine-Chondroitin 1 TAB) PO SCH (21:00)
[2019-06-23] MEDS: SIMVASTATIN 5 MG TAB PO SCH (21:37)
--- NOTE | 2019-06-23 22:47 | Emergency Department Note ---
Entered by Rebekah Barry acting as a scribe for Wilfredo Cardona MD ED Provider Note Name: NUSRAT QUIROZ Age: 79 Arrives Via: Walk-In Informant: Patient, siblings CC: Neruo symptoms/deficit HPI: 79F arrives for evaluation of neuro symptoms/deficit. The patient explains that she was out to lunch today at 2:30PM with her siblings when she suddenly began to experience bilateral eye blurriness and "fuzziness" while sitting down. She states this episode included "slight" double vision and lasted for about 10 minutes then resolved on its own (no meds taken for relief). She explains that her right eye vision improved first following her left eye. Her siblings state that she did not look unsteady nor did she have any noticeable facial weakness or tingling in her bilateral extremities. She currently complains of a headache that radiates to her posterior head. Of note, she states that she has not experienced similar symptoms in the past and is currently not on blood thinners. She denies abdominal pain, nausea, vomiting, back pain, rashes, urinary symptoms, fever, neck stiffness, as well as recent car accidents, neck trauma, chiropractor visits, or diet changes. The patient offers no additional complaints at this time. ROS: See above HPI for pertinent positives & negatives. A total of 10 systems reviewed and were otherwise negative. Past Medical History:pt reports HTN but no other medical problems indicated on Knowable Past Surgical History:none stated on Knowable Family History:pt reports paternal [place] and that her brother had a stroke, no other history on Knowable Social History:non-smoker, ETOH socially Home Medications:See Below Allergies:no known Vitals:BP 201/98 Pulse 72 Resp 17 Temp 36.6 C O2 Sat 99 Delivery RA Physical Exam: GENERAL: Patient is anxious appearing and in no acute distress. EYES: No scleral icterus, unremarkable pupils. ENT: Mucous membranes moist, no nasal congestion. NECK: No masses appreciated, nomeningismus, trachea is midline. RESPIRATORY: No dyspnea. Clear to auscultation and equal bilaterally. No wheeze, no rhonchi. CARDIOVASCULAR: Regular rate and rhythm.No murmurs, rubs, gallops appreciated. GASTROINTESTINAL: Abdomen soft, non-tender, no peritonitis.Bowel sounds positi ve.No masses appreciated. BACK: No midline tenderness, no CVA tenderness EXTREMITIES: Normal motion all extremities, no cyanosis, no edema. NEUROLOGIC: Alert and oriented, no acute motor or sensory deficits, no focal weakness, cranial nerves grossly intact. SKIN: No rash, no jaundice, no diaphoresis. ED Course: Prior Medical Record, Triage/Nursing Notes, Medications, Allergies reviewed by Me Vital Signs: reviewed and remarkable for HTN Labs:Reviewed and remarkable for no significant abnormalities Interventions: saline lock, labetalol 10mg IV, Hydralazine 5mg IV, ASA 324mg PO Imaging: HEAD CT NONCONTRAST CT DOSE: 638.56 mGycm HISTORY: Visual disturbance, acute headache TECHNIQUE: Multiaxial CT images of the head were performed without the use of intravenous contrast. Automated exposure control was utilized for this study. A dose lowering technique was utilized adhering to the principles of ALARA. Comparison: Head CT 01/31/2017. Findings: The paranasal sinuses and mastoid air cells are clear. The calvarium and skull base are intact. The ventricles and sulci are within normal limits. There is no mass, hematoma, midline shift, or acute infarct. Impression: No acute intracranial abnormality. Electronically signed by: Iván Correa M.D. 06/23/2019 4:08 PM EKG:Per My Interpretation: Indication HTN: Sinus with PVCs no ischemia. 71 bpm. QTC 417. Similar to 01/31/17 now with ectopy. Reassessments/Times: * 1619: Paged [facility] Hospitalist for admission * 1800: The patient will be admitted under the care of Dr. Negron. The patient verbally expressed understanding and agreement of the treatment plan. The patient will be evaluated for further treatment. Blood pressure:Elevated - Referred to PCP - [place] to be Situational. Disposition:Admitted.See plan for instructions. Condition: Good. Prescriptions:None. Differentials:Etiologies such as benign hypertension, hypertensive emergency, cardiovascular pathology, pheochromocytoma, electrolyte abnormality, renal disease, endorgan damage, amongst other pathologies. Medical Decision Makin yr old female with history of HTN, DLP, and family history of CVA arrives after episode of blurry vision bilaterally and tingling in hand and possibly ambulatory dysfunction. She is quite hypertensive on arrival which is not normal for her. She has NIH [address] head emergently done and negative. IV labetalol for BP which improved somewhat and then due to some bradycardia and still HTN given IV hydralazine with further improvement. EKG without ischemia, no trop elevation currently. With family history, age, symptoms and her history I do feel that after requiring 2 round IV antihypertensives for BP along with her weird stroke like symptoms will bring in for further management. Patient given PO asa for stroke management though without current symptoms will defer further work-up to hospitalists. Impression: * Hypertensive emergency * Visual disturbance Critical Care Time: I have personally spent greater than 30 minutes of critical care time in the direct management of this patient. Hypertensive emergency with neurologic symptoms. This was a life/limb threatening event. This includes time spent evaluating patient, direct bedside care, chart review, placing orders, interpretation of diagnostic studies, discussion with consultants, patient, and family members, as well as other required patient management activities. This 30 minutes is in excess of all separately billable procedures. The scribe's documentation has been prepared under my direction and personally reviewed by me in its entirety. I confirm that the note above accurately reflects all work, treatment, procedures, and medical decision making performed by me. Wilfredo Cardona MD Impression & Plan Hypertensive emergency, Visual disturbance Past Med/Surg History Medical History (Updated 06/23/19 @ 22:47 by Wilfredo Cardona MD) HLD (hyperlipidemia) HTN (hypertension) Social History Preferred Language: Wallisian Communication Ability: Effective Vp Emerging Media Required: No Beliefs That Will Affect Care: None Current Living Situation: Spouse Other Information That Helps Us Care for You: No Feels Safe at Home: Yes Safety Concerns: Feels Safe At This Time Smoking Status: Never smoker Second Hand Exposure: No ; Hx Alcohol Use: Yes Alcohol type: beer and wine Hx Substance Use: No Results & Data Vital Signs Vital Signs - 24 hr 06/23/19 15:07 06/23/19 15:31 06/23/19 15:40 Temperature 36.6 C Temperature Source Oral Pulse Rate 73 66 70 Pulse Rate from SpO2 Sensor 65 70 Respiratory Rate 18 20 16 Blood Pressure 190/78 H Blood Pressure Mean 115 Pulse Oximetry 100 99 100 Oxygen Delivery Method Room Air Sepsis Recent Fever Within 48 Hours No Sepsis New/Unexplained Change in Mental Status No Sepsis Action Taken by Nursing No Action Required 06/23/19 15:42 06/23/19 16:06 06/23/19 16:10 Temperature Temperature Source Pulse Rate 62 72 62 Pulse Rate from SpO2 Sensor 61 59 L Respiratory Rate 18 17 19 Blood Pressure 201/98 H Blood Pressure Mean 105 Pulse Oximetry 99 99 Oxygen Delivery Method Sepsis Recent Fever Within 48 Hours Sepsis New/Unexplained Change in Mental Status Sepsis Action Taken by Nursing 06/23/19 16:20 06/23/19 16:24 06/23/19 16:30 Temperature Temperature Source Pulse Rate 73 68 59 L Pulse Rate from SpO2 Sensor 66 58 L Respiratory Rate 19 16 20 Blood Pressure 211/100 H 180/87 H Blood Pressure Mean 148 125 Pulse Oximetry 99 99 Oxygen Delivery Method Sepsis Recent Fever Within 48 Hours Sepsis New/Unexplained Change in Mental Status Sepsis Action Taken by Nursing 06/23/19 16:31 06/23/19 16:40 06/23/19 16:45 Temperature Temperature Source Pulse Rate 59 L 63 66 Pulse Rate from SpO2 Sensor 59 L 63 60 Respiratory Rate 19 21 19 Blood Pressure 192/124 H Blood Pressure Mean 145 Pulse Oximetry 96 99 100 Oxygen Delivery Method Sepsis Recent Fever Within 48 Hours Sepsis New/Unexplained Change in Mental Status Sepsis Action Taken by Nursing 06/23/19 16:50 06/23/19 17:00 06/23/19 17:01 Temperature Temperature Source Pulse Rate 58 L 63 61 Pulse Rate from SpO2 Sensor 58 L 62 59 L Respiratory Rate 22 22 20 Blood Pressure 185/68 H Blood Pressure Mean 150 Pulse Oximetry 99 100 99 Oxygen Delivery Method Sepsis Recent Fever Within 48 Hours Sepsis New/Unexplained Change in Mental Status Sepsis Action Taken by Nursing 06/23/19 17:02 06/23/19 17:10 06/23/19 17:15 Temperature Temperature Source Pulse Rate 71 64 63 Pulse Rate from SpO2 Sensor 72 63 63 Respiratory Rate 20 23 18 Blood Pressure 181/97 H Blood Pressure Mean 134 Pulse Oximetry 99 100 99 Oxygen Delivery Method Sepsis Recent Fever Within 48 Hours Sepsis New/Unexplained Change in Mental Status Sepsis Action Taken by Nursing 06/23/19 17:20 06/23/19 17:30 Temperature Temperature Source Pulse Rate 72 66 Pulse Rate from SpO2 Sensor 71 64 Respiratory Rate 17 23 Blood Pressure Blood Pressure Mean Pulse Oximetry 99 99 Oxygen Delivery Method Sepsis Recent Fever Within 48 Hours Sepsis New/Unexplained Change in Mental Status Sepsis Action Taken by Nursing Laboratory Data Result diagrams: 06/23/19 15:26 06/23/19 15:26 Lab Results 06/23/19 06/23/19 06/23/19 Range/Units 15:19 15:26 15:26 WBC 8.56 (4.8-10.8) K/uL RBC 4.62 (4.2-5.4) M/uL Hgb 15.2 (12.0-16.0) g/dL Hct 44.4 (37-47) % MCV 96.1 (80-100) fL MCH 32.9 (25-34) pg MCHC 34.2 (32-36) g/dL RDW Std Deviation 49.7 H (36.4-46.3) fL RDW Coeff of Venita 14.1 (11.5-14.5) % Plt Count 260 (130-400) K/uL MPV 11.2 H (7.4-10.4) fL Immature Gran % (Auto) 0.1 % Neut % (Auto) 64.9 % Lymph % (Auto) 24.8 % [place] % (Auto) 7.6 % Eos % (Auto) 2.0 % Baso % (Auto) 0.6 % Immature Gran # (Auto) 0.01 (0.00-0.02) K/uL Neut # (Auto) 5.56 (1.4-6.5) K/uL Lymph # (Auto) 2.12 (1.2-3.4) K/uL [place] # (Auto) 0.65 H (0.11-0.59) K/uL Eos # (Auto) 0.17 (0-0.5) K/uL Baso # (Auto) 0.05 (0-0.2) K/uL PT 10.0 (9.0-12.0) Seconds INR 1.0 (0.9-1.1) Sodium (136-145) mmol/L Potassium (3.5-5.1) mmol/L Chloride (98-107) mmol/L Carbon Dioxide (21-32) mmol/L Anion Gap (3-11) BUN (7-18) mg/dl Creatinine (0.6-1.2) mg/dl Est Cr Clr Drug Dosing ml/min Est GFR ( Amer) Est GFR (Non-Af Amer) BUN/Creatinine Ratio (10-20) Glucose (70-99) mg/dl POC Glucose 103 H (70-99) Calcium (8.5-10.1) mg/dl Magnesium (1.8-2.4) mg/dl Troponin I (0-0.045) ng/ml Urine Color Urine Appearance (Clear) Urine pH (4.5-7.5) Ur Specific [place] (1.000-1.030) Urine Protein (Negative) Urine Glucose (UA) (Negative) Urine Ketones (Negative) Urine Blood (Negative) Urine Nitrite (Negative) Urine Bilirubin (Negative) Urine Urobilinogen (Negative) Ur Leukocyte Esterase (Negative) Urine WBC (Auto) (0-5) /hpf Urine RBC (Auto) (0-4) /hpf U Hyaline Cast (Auto) (0-5) /lpf U Epithel Cells (Auto) (0-5) /lpf Urine Bacteria (Auto) (Negative) 06/23/19 06/23/19 Range/Units 15:26 16:07 WBC (4.8-10.8) K/uL RBC (4.2-5.4) M/uL Hgb (12.0-16.0) g/dL Hct (37-47) % MCV (80-100) fL MCH (25-34) pg MCHC (32-36) g/dL RDW Std Deviation (36.4-46.3) fL RDW Coeff of Venita (11.5-14.5) % Plt Count (130-400) K/uL MPV (7.4-10.4) fL Immature Gran % (Auto) % Neut % (Auto) % Lymph % (Auto) % [place] % (Auto) % Eos % (Auto) % Baso % (Auto) % Immature Gran # (Auto) (0.00-0.02) K/uL Neut # (Auto) (1.4-6.5) K/uL Lymph # (Auto) (1.2-3.4) K/uL [place] # (Auto) (0.11-0.59) K/uL Eos # (Auto) (0-0.5) K/uL Baso # (Auto) (0-0.2) K/uL PT (9.0-12.0) Seconds INR (0.9-1.1) Sodium 138 (136-145) mmol/L Potassium 3.2 L (3.5-5.1) mmol/L Chloride 102 (98-107) mmol/L Carbon Dioxide 28 (21-32) mmol/L Anion Gap 8.0 (3-11) BUN 15 (7-18) mg/dl Creatinine 1.04 (0.6-1.2) mg/dl Est Cr Clr Drug Dosing 44.6 ml/min Est GFR ( Amer) 58.8 Est GFR (Non-Af Amer) 50.7 BUN/Creatinine Ratio 14.5 (10-20) Glucose 103 H (70-99) mg/dl POC Glucose (70-99) Calcium 9.6 (8.5-10.1) mg/dl Magnesium 2.0 (1.8-2.4) mg/dl Troponin I < 0.015 (0-0.045) ng/ml Urine Color Yellow Urine Appearance Clear (Clear) Urine pH 6.5 (4.5-7.5) Ur Specific [place] 1.008 (1.000-1.030) Urine Protein Negative (Negative) Urine Glucose (UA) Negative (Negative) Urine Ketones Negative (Negative) Urine Blood Negative (Negative) Urine Nitrite Negative (Negative) Urine Bilirubin Negative (Negative) Urine Urobilinogen Negative (Negative) Ur Leukocyte Esterase 1+ H (Negative) Urine WBC (Auto) 5-10 H (0-5) /hpf Urine RBC (Auto) 0-4 (0-4) /hpf U Hyaline Cast (Auto) 0 (0-5) /lpf U Epithel Cells (Auto) 20-30 H (0-5) /lpf Urine Bacteria (Auto) Negative (Negative) Administered Medications Ioversol (Optiray 320 125ml) 118 ml IV ONCE PRN PRN Reason: Interaction Checking Stop: 06/27/19 18:25 Last Admin: 06/23/19 18:26 Dose: 118 ml Documented by: [id number] Simvastatin (Zocor) 5 mg PO QPM GIOVANNI Stop: 07/23/19 20:59 Last Admin: 06/23/19 21:37 Dose: 5 mg Documented by: [id number] Discontinued Medications Aspirin (Aspirin Chew) 324 mg PO NOW STA Stop: 06/23/19 16:48 Last Admin: 06/23/19 16:52 Dose: 324 mg Documented by: [id number] Hydralazine HCl (Hydralazine Hcl) 5 mg IV NOW ONE Stop: 06/23/19 16:45 Last Admin: 06/23/19 16:48 Dose: 5 mg Documented by: [id number] Labetalol HCl (Normodyne) 10 mg IV NOW STA Stop: 06/23/19 16:14 Last Admin: 06/23/19 16:24 Dose: 10 mg Documented by: [id number] Cosigned by: [id number] Discharge Plan Visit Data *Final* Discharge Date/Time: 06/23/19 18:13 Chief Complaint: Neuro Symptoms/Deficit Stated Complaint: VISION PROBLEMS, HEADACHE ED Provider: Wilfredo Cardona Discharge Problem: Hypertensive emergency, Visual disturbance Patient Disposition: Admitted As Inpatient Discharge Instructions Interventions: ED Discharge Assessment Last Done: 06/23/19 18:13 The scribe's documentation has been prepared under my direction and personally reviewed by me in its entirety. I confirm that the note above accurately reflects all work, treatment, procedures, and medical decision making performed by me.
[2019-06-24] MEDS: [UNRECOGNIZED DRUG - REMARK] SCH ×4 (00:09→23:54)
[2019-06-24 05:47] LABS: Basophils # (auto) 0.07 K/uL (0-0.2); Basophils % (auto) 1.1 %; Eosinophils # (auto) 0.22 K/uL (0-0.5); Eosinophils % (auto) 3.5 %; Hematocrit (blood only) 37.6 % (37-47); Immature Granulocytes # (auto) 0.01 K/uL (0.00-0.02); Immature Granulocytes % (auto) 0.2 %; Lymphocytes # (auto) 1.96 K/uL (1.2-3.4); Lymphocytes % (auto) 30.8 %; Mean Corpuscular Hemoglobin 32.7 pg (25-34); Mean Corpuscular Hgb Conc 34.6 g/dL (32-36); Mean Corpuscular Volume 94.7 fL (80-100); Mean Platelet Volume 10.8 fL (7.4-10.4); Monocytes # (auto) 0.72 K/uL (0.11-0.59); Monocytes % (auto) 11.3 %; Neutrophils # (auto) 3.38 K/uL (1.4-6.5); Neutrophils % (auto) 53.1 %; Platelet Count 226 K/uL (130-400); RDW Coefficient of Variation 14.1 % (11.5-14.5); RDW Standard Deviation 48.5 fL (36.4-46.3); Red Blood Count 3.97 M/uL (4.2-5.4); White Blood Count 6.36 K/uL (4.8-10.8)
[2019-06-24 06:24] LABS: BUN Creatinine Ratio 20.1 (10-20); Est GFR (African American) 71.9; Est GFR (Non-African American) 62.1; Potassium 3.3 mmol/L (3.5-5.1)
[2019-06-24 06:41] LABS: Estimated Average Glucose 114 mg/dl; Hemoglobin A1C 5.6 % (4.5-5.6)
[2019-06-24] MEDS: POTASSIUM CHLORIDE 10 MEQ TABCR PO SCH (08:20)
[2019-06-24] MEDS: CALCIUM 600MG + VIT D 400 IU TAB PO SCH (08:20)
[2019-06-24] MEDS: ASCORBIC ACID 500 MG TAB PO SCH (08:21)
[2019-06-24] MEDS: TRIAMTERENE/HCTZ 37.5/25MG TAB PO SCH (08:21)
[2019-06-24] MEDS: CEROVITE ADV FORMULA TAB PO SCH (08:21)
[2019-06-24] MEDS: CHOLECALCIFEROL 1,000 UNITS TAB PO SCH (08:22)
[2019-06-24] MEDS ORDERED: AMLODIPINE BESYLATE 5 MG TAB PO ONE (11:30)
--- NOTE | 2019-06-24 11:30 | Neurology Consultation ---
Date of Consultation June 24, 2019 Assessment & Plan (1) Hypertensive emergency: (2) Visual disturbance: (3) Headache: Patient had the sudden onset, June 23, of blurry vision bilaterally for about 10 minutes which resolved followed by a nonspecific bilateral headache. This too is improved. All of this was in the setting of significant hypertension. Patient has a longstanding history of hypertension but it was markedly elevated on admission. I believe her symptoms were directly related to her elevated blood pressure causing nonspecific blurry vision and headache. Otherwise, she had no other neurologic symptoms and currently on examination has no focal neurologic findings, meningeal signs, or encephalopathy. Therefore, I do not believe this was a TIA or a stroke. The patient has some decreased vibration in the feet with some relatively decreased ankle reflexes. A very mild sensory polyneuropathy may be present but does not seem to be affecting her balance. Recommendations: 1. I see no need for additional neurologic testing at this time. An MRI of the brain could be done to assess for small vessel ischemic disease but I do not think this is necessary at this time. 2. Continue with 81 mg aspirin tablet daily or every other day. 3. Control blood pressure. It seems to be somewhat labile and the most recent reading (10 minutes ago) is 192/93. Aim for a mean arterial pressure of 95-100. 4. Continue simvastatin at current dose. Otherwise, please contact me if I can be of further assistance on this case. Overall, I spent a total of 115 minutes with this case including review of records, review of CT films, direct evaluation the patient at bedside, and discussing the case with patient and her at bedside and Dr. Hwang, including differential diagnosis and treatment options. History of Present Illness Reason for Consultation: Patient is an 79-year-old, who I was asked to see the request of Dr. Negron, for neurologic consultation regarding episode of visual disturbance and headache. Requesting Physician: Dr. Negron Attending Physician: Darío Hwang History of Present Illness This patient has a longstanding history of hypertension treated with medication. She also has some history of dyslipidemia on simvastatin. She has never been a tobacco user and has no history of diabetes. She has not been on antiplatelet medication and has no history of stroke or TIA. Yesterday, June 23, patient had a good morning and early afternoon. She ate lunch at a local restaurant and sometime around 1430 she had the sudden onset of blurry vision in both eyes. There was no eye pain, double vision, or loss of vision. He was mostly blurry around the periphery of each eye. She described it as fuzzy. It lasted about 10 minutes in general. Sometime around 8 or 9 minutes the right eye improved and by 10 minutes the left eye improved back to baseline. She never had any visual symptoms thereafter. Sometime after this event and certainly when she was in the emergency room she noted a nonspecific bifrontal headache. She denied weakness or numbness of the limbs, pain in her limbs or spine, balance problems, speech issues, confusion or mentation problems, neck problems, or other issues. She read to the emergency room June 23 at 1507 with a temperature of 36.6, pulse 73 and regular, respiratory rate 18, blood pressure 190/78, and O2 sat 100. She had no deficits on neurologic examination but did have a bioccipital headache of a dull nature. She had no other symptoms. CT scan of the head was unremarkable for acute changes. CT angiography of the head and neck were unremarkable with no significant vessel stenoses or anomalies. CBC was unremarkable. Chem profile showed a mildly low potassium and glucose of 100. Hemoglobin A1c was 5.6, triglyceride 60, and total cholesterol 152. Urinalysis was unremarkable. Patient has had no further symptoms or problems and feels back to baseline. She had a slight headache this morning but it resolved. Blood pressure is 114/80 this morning. Overnight she was in sinus rhythm in the 70s. Allergies Allergy/AdvReac Type Severity Reaction Status Date / Time No Known Allergies Allergy Verified 06/23/19 16:46 Home Medications Home Medications Medication Instructions Recorded Confirmed Type ascorbic acid (vitamin C) 1,000 mg PO QAM 06/23/19 06/23/19 History calcium carbonate-vitamin D3 2 tab PO QAM 06/23/19 06/23/19 History [Caltrate 600 plus D] cholecalciferol (vitamin D3) 1,000 unit PO QAM 06/23/19 06/23/19 History [Vitamin D3] fluorouracil 1 applic TOPICAL BID 06/23/19 06/23/19 History glucosamine-chondroitin 1 tab PO BID 06/23/19 06/23/19 History [id number] 1 tab PO QAM 06/23/19 06/23/19 History [Multivitamin 50 Plus] potassium chloride [K-Tab] 30 meq PO QAM 06/23/19 06/23/19 History simvastatin 5 mg PO QPM 06/23/19 06/23/19 History triamterene-hydrochlorothiazid 1.5 tab PO QAM 06/23/19 06/23/19 History Patient History Medical History (Updated 06/24/19 @ 11:24 by Mamadou Samuel III, MD) Breast cancer HLD (hyperlipidemia) HTN (hypertension) Ovary removal, prophylactic Surgical History S/P appendectomy S/P mastectomy, bilateral Family History Mother , age 70 with lung cancer Lung cancer Heart disease Father , age 91 Coronary heart disease Social History Preferred Language: Czech Communication Ability: Effective Boot Liner Maker Required: No Beliefs That Will Affect Care: None Current Living Situation: Spouse current occupational status: retired Other Information That Helps Us Care for You: No 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: 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 Feels Safe at Home: Yes Safety Concerns: Feels Safe At This Time Smoking Status: Never smoker Second Hand Exposure: No ; Hx Alcohol Use: Yes Alcohol type: beer and wine Alcohol Intake Frequency Comment: 1-2 per week Hx Substance Use: No Review of Systems Constitutional: no fever, no fatigue and no weakness Eyes: no diplopia, no eye pain and no worsening vision Ear, Nose, Mouth, Throat: + hearing loss; no ear pain, no tinnitus, no dizziness, no snoring, no hoarseness and no dysphagia Respiratory: no cough and no dyspnea Cardiovascular: no chest pain, no palpitations and no lightheadedness Gastrointestinal: no abdominal pain, no nausea and no vomiting Genitourinary: no dysuria, no urinary frequency and no urinary incontinence Musculoskeletal: no back pain, no neck pain, no radicular pain, no joint pain and no myalgia Integumentary: no rash and no lesions Neurologic: + headache(s); no gait abnormality, no localized weakness, no generalized weakness, no tingling, no numbness, no tremor(s), no abnormal move ments, no abnormal speech, no confusion and no memory loss Psychiatric: no depression, no irritability, no anxiety, no difficulty concentrating, no confusion and no hallucinations Endocrine: no fatigue and no flushing Hematologic / Lymphatic: no easy bleeding and no easy bruising Allergy / Immunological: no urticaria and no problem reported Physical Exam Physical Exam: The patient is right-handed. The patient is awake, alert, and attentive. Speech is normal without any aphasia or dysarthria. She can name objects, repeat phrases, and has normal spontaneous speech. Mentation and thought processes are intact, with orientation to person, place and time, and normal fund of knowledge. Attention and concentration are normal. Mood and affect are normal and appropriate. General appearance and grooming are normal. Short and long-term memory are intact. The discs are sharp with positive venous pulsations bilaterally. There are no exudates, hemorrhages, or blood vessel changes seen. Pupils are 4 mm bilaterally and reactive to light. Extraocular eye muscles are intact without nystagmus. Visual acuity and visual hoffmann seem normal grossly to confrontation. There are no deficits to sensation in the face in all 3 distributions of the fifth cranial nerve bilaterally. Corneal reflexes are positive bilaterally. Facial strength and symmetry was normal bilaterally. Hearing seems mildly decreased on the left. Palate moves well without asymmetry. There is normal sternocleidomastoid and trapezius (shoulder shrug) strength bilaterally. Tongue is midline with good strength bilaterally. Neck has a full range of motion without discomfort. There are no cervical bruits bilaterally. There are no cranial or ocular bruits. Heart is without murmur. There is a regular rhythm and rate. Cervical, thoracic, and lumbar spine are nontender to palpation. Gait is narrow based, with good arm swing, turns, and stance. Balance is normal eyes open or closed. The patient can tandem walk without too much difficulty. With outstretched arms there is no drift. There are no resting, postural, or action tremors. There is no ataxia with finger to nose testing. There is good facility in the hands. No other abnormal involuntary movements are noted. Motor strength is 5/5 diffusely in the arms bilaterally including deltoids, biceps, triceps, brachioradialis, wrist flexors and extensors, communications representative, and intrinsic hand muscles. Motor strength is 5/5 diffusely in the legs bilaterally including hip flexors, quadriceps, hamstrings, gastrocnemius, tibialis anterior, tibialis posterior, and Peroneii muscles. Toe extensors are normal and there is good bulk in the extensor digitorum brevis muscles bilaterally. The limbs have good tone without rigidity or spasticity. There is no atrophy noted in the muscles. Muscle bulk is normal, there is no tenderness to palpation, no myotonia to percussion, and no fasciculations seen. Sensory examination is intact to touch and pin throughout all 4 limbs diffusely. Vibratory sense testing is slightly decreased in the feet. Reflexes are 2/4 in the biceps, triceps, brachioradialis, and quadriceps tendons bilaterally. Achilles tendon reflexes are 1/4 bilaterally There is no clonus bilaterally. Toes are downgoing with plantar stimulation bilaterally. Peripheral pulses are present and of normal quality distally in all 4 limbs. There is no peripheral edema noted in the limbs. Results & Data Vital Signs (Past 12 Hours) Vital Signs Temp Pulse Pulse Resp BP Pulse Ox 06/24/19 11:11 36.6 C 68 16 192/93 H 98 06/24/19 11:08 78 06/24/19 08:50 36.6 C 72 16 114/80 96 06/24/19 08:00 66 06/24/19 07:07 36.9 C 65 18 111/59 L 96 06/24/19 04:01 36.7 C 73 20 138/70 96 06/24/19 01:40 60 06/23/19 23:42 36.7 C 66 18 146/78 H 97 PG Care Time/CCT Total # of Minutes Spent Total Time Spent with Patient: Total time spent is greater than 50% in coordination of care (as documented) at patient's floor/unit and/or counseling patient:
[2019-06-24] MEDS ORDERED: POTASSIUM CHLORIDE 20 MEQ TABCR PO ONE (17:00)
[2019-06-24] MEDS: SIMVASTATIN 5 MG TAB PO SCH (20:14)
[2019-06-24] MEDS ORDERED: LISINOPRIL 5 MG TAB PO SCH (21:00)
--- NOTE | 2019-06-24 22:57 | Hospitalist Progress Note ---
Date of Service June 24, 2019 Assessment & Plan (1) TIA (transient ischemic attack): -Admit to PCU -Stroke order set completed -Neurochecks, speech eval and treat, no residual deficits/weakness, speech is clear, patient reporting visual disturbances now completely resolved. She does have a residual headache and bilateral posterior neck pain -Neurology consulted, Dr. Samuel -Allow for permissive hypertension-patient blood pressure has been elevated as an outpatient, possible that hypertensive urgency cause visual disturbances, see below -CT of the head negative for any acute findings -CT Angio of the head and neck ordered, follow -PT/OT consults, patient functions independently at home -Initial plan was to discharge but patient remained with elevated BP. Will need to bring this done and under better control. Patient recieved an IV BB. Will place a low dose calcium channel ronnie and low dose liana inhibitor at night. Will monitor her BP. (2) HTN (hypertension): -Possible that hypertensive urgency caused visual disturbances vs TIA? - had previously been placed on valsartan and lisinopril however had adverse effects due to these medications and were discontinued. Pt reports outpt BP has been 150 in the last 4-5 mo, prior to this had a lower SBP ~110. -Continue HCTZ 1.5 tab p.o. QAM -Patient denies any social circumstances, increased anxiety, etc to have elevated her BP. - Cont K+ supplementation with HCTZ -as noted above, will monitor Added amlodipine and lisnopril -EKG reviewed showing sinus tach with first-degree AV block. No signs of ST wave inversions or acute ischemia (3) HLD (hyperlipidemia): -Continue on simvastatin 5 mg QPM (4) Actinic keratosis: - Continue fluorouracil topically BID - Follows with dermatology as an outpatient and was checked in their office earlier today. (5) Osteoarthritis: - Continue Vit D and calcium supplementation (6) DVT prophylaxis: -Teds CODE STATUS full code Subjective Patient is a pleasant 79 yo female, she reports no new symptoms. And states she is close to her baseline. She understands that her blood pressure is elevated still. Review of Systems Review of Systems: All systems reviewed & are unremarkable except as noted in HPI & below Physical Exam Physical Exam: General: awake, alert, no apparent distress, appears younger than stated age Head: Normocephalic, atraumatic ENT: PERRL, EOMI, no pharyngeal exudate, mucous membranes moist Chest: Clear to auscultation, on room air, no adventitious breath sounds Cardiac: Regular rate and rhythm, +few PVCs, no murmur, no JVD, normal peripheral pulses, good capillary refill Abdominal: NABS x 4 quadrants, soft, nondistended, nontender to palpation, no rebound, guarding or tenderness Extremities: +multiple bright red lesions over BLE, +trace peripheral edema, calfs nontender to palpation Psych: Normal mood and affect Neuro: AAO x 3, strength intact bilaterally and rated 5/5, no gross motor deficits, speech is clear, no peripheral sensory deficits Skin: no rash or erythema Results & Data Vital Signs (Past 12 Hours) Vital Signs Temp Pulse Pulse Resp BP Pulse Ox 06/24/19 19:57 36.7 C 66 19 162/88 H 98 06/24/19 15:18 36.8 C 62 19 124/58 L 97 06/24/19 11:11 36.6 C 68 16 192/93 H 98 06/24/19 11:08 78 PG Care Time/CCT Total # of Minutes Spent Total Time Spent with Patient: Total time spent is greater than 50% in coordination of care (as documented) at patient's floor/unit and/or counseling patient:
[2019-06-25 05:49] LABS: Basophils # (auto) 0.04 K/uL (0-0.2); Basophils % (auto) 0.7 %; Eosinophils # (auto) 0.25 K/uL (0-0.5); Eosinophils % (auto) 4.3 %; Hematocrit (blood only) 39.5 % (37-47); Hemoglobin 13.5 g/dL (12.0-16.0); Immature Granulocytes # (auto) 0.01 K/uL (0.00-0.02); Immature Granulocytes % (auto) 0.2 %; Lymphocytes # (auto) 1.64 K/uL (1.2-3.4); Lymphocytes % (auto) 28.4 %; Mean Corpuscular Hemoglobin 32.9 pg (25-34); Mean Corpuscular Hgb Conc 34.2 g/dL (32-36); Mean Corpuscular Volume 96.3 fL (80-100); Mean Platelet Volume 10.9 fL (7.4-10.4); Monocytes % (auto) 10.4 %; Neutrophils # (auto) 3.24 K/uL (1.4-6.5); Platelet Count 221 K/uL (130-400); RDW Coefficient of Variation 14.4 % (11.5-14.5); RDW Standard Deviation 50.6 fL (36.4-46.3); White Blood Count 5.78 K/uL (4.8-10.8)
[2019-06-25 06:23] LABS: BUN Creatinine Ratio 21.2 (10-20); Calcium 9.2 mg/dl (8.5-10.1); Creatinine Clr Calc Pharmacy 45.3 ml/min; Est GFR (African American) 60.9; Est GFR (Non-African American) 52.5; Potassium 3.9 mmol/L (3.5-5.1)
--- NOTE | 2019-06-25 07:42 | Neurology Progress Note ---
Date of Service June 25, 2019 Assessment & Plan (1) Hypertensive emergency: (2) Visual disturbance: (3) Headache: Patient had the sudden onset, June 23, of blurry vision bilaterally lasting about 10 minutes, which resolved, followed by a nonspecific bilateral headache. This too is improved. All of this was in the setting of significant hypertension. This morning she is asymptomatic and has a normal neurologic examination as well. Patient has a longstanding history of hypertension but it was markedly elevated on admission. I believe her symptoms were directly related to her elevated blood pressure causing nonspecific blurry vision and headache. Otherwise, she had no other neurologic symptoms and currently on examination has no focal neurologic findings, meningeal signs, or encephalopathy. Therefore, I do not believe this was a TIA or a stroke. The patient has some decreased vibration in the feet with some relatively decreased ankle reflexes. A very mild sensory polyneuropathy may be present but does not seem to be affecting her balance. Recommendations: 1. I see no need for additional neurologic testing at this time. An MRI of the brain could be done to assess for small vessel ischemic disease but I do not think this is necessary at this time. 2. Continue with 81 mg aspirin tablet daily or every other day. 3. Control blood pressure. It seems to be somewhat labile and the most recent reading (10 minutes ago) is 192/93. Aim for a mean arterial pressure of 95-100. 4. Avoid over-correction of blood pressure and avoid lisinopril as it gave her significant side effects in the past. 5. Continue simvastatin at current dose. Otherwise, please contact me if I can be of further assistance on this case. Overall, I spent a total of 25 minutes with this case including review of records, direct evaluation the patient at bedside, and discussion of the case with the patient at bedside, and Dr. Hwang, including differential diagnosis and treatment options. Subjective Patient's blood pressure went up markedly yesterday. After treatment it has come down last evening and this morning. Currently is 109/57. She is sitting up in bed eating breakfast and has no complaint of pain, lightheadedness or dizziness, speech problems, numbness, or weakness. She is not confused. Her pulse is been in the high 50s overnight She has a history of significant cough to lisinopril. Physical Exam Physical Exam: She is awake and alert. Speech is without aphasia or dysarthria. Mood is normal and affect is appropriate. Thought processes are intact to conversation. Extraocular eye muscles are intact without nystagmus. There is no facial droop. Tongue is midline. [id number]-[id number] testing is normal bilaterally and there is no tremor or ataxia. Strength is symmetrical in all limbs. Results & Data Vital Signs (Past 12 Hours) Vital Signs Temp Pulse Resp BP Pulse Ox 06/25/19 07:09 36.7 C 57 L 20 109/57 L 96 06/25/19 03:57 36.8 C 57 L 20 102/55 L 95 06/25/19 00:18 36.8 C 62 20 105/50 L 96 06/24/19 19:57 36.7 C 66 19 162/88 H 98 PG Care Time/CCT Total # of Minutes Spent Total Time Spent with Patient: Total time spent is greater than 50% in coordination of care (as documented) at patient's floor/unit and/or counseling patient:
[2019-06-25] MEDS: TRIAMTERENE/HCTZ 37.5/25MG TAB PO SCH (07:56)
[2019-06-25] MEDS: POTASSIUM CHLORIDE 10 MEQ TABCR PO SCH (07:56)
[2019-06-25] MEDS: CEROVITE ADV FORMULA TAB PO SCH (07:57)
[2019-06-25] MEDS: ASCORBIC ACID 500 MG TAB PO SCH (07:57)
[2019-06-25] MEDS: CHOLECALCIFEROL 1,000 UNITS TAB PO SCH (07:57)
[2019-06-25] MEDS: CALCIUM 600MG + VIT D 400 IU TAB PO SCH (07:57)
[2019-06-25] MEDS: [UNRECOGNIZED DRUG - REMARK] SCH (07:57)
[2019-06-25] MEDS ORDERED: AMLODIPINE BESYLATE 5 MG TAB PO STA (11:40)
[2019-06-25] MEDS ORDERED: STROKE PATIENT DISCHARGE STA (11:50)
--- NOTE | 2019-06-28 02:18 | Discharge Summary ---
Date of Service June 25, 2019 Admission HPI Per Admitting Provider This is an 79 yo F with PMHx of HTN, HLD, osteoarthritis who presents with acute onset of visual disturbances with started around 2:30 PM. 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 This was not a formal appointment. She then proceeded to go to [facility] with her siblings for lunch. While she was sitting there she developed a visual disturbance which affected both eyes involving black lines and somewhat blurred vision. She felt that she would not be able to get up or drive herself home. Her siblings convinced her to go to the ER and drove her here themselves as she was hesitant. Since being in the ER the patient was found to be in hypertensive urgency with a SBP of 211/100. CT of the head was conducted and was negative for any acute findings. Patient notes that she has been following with her PCP as an outpatient due to elevated blood pressure. She was switched from hydrochlorothiazide to lisinopri l however developed a cough thus that was discontinued. She was then trialed on valsartan however developed leg edema. She was then replaced back on hydrochlorothiazide at a double dose however found that she was having issues with incontinence, and finally was titrated down to 1.5 tablets QAM. She reports her blood pressure was not ideal even during the last visit where SBP = 150, which was about 2 months ago, and was planning on following up within the next 6 months with PCP. Blood work is WNL CT the head is negative EKG reviewed showing sinus tach with first-degree AV block. No signs of ST wave inversions or acute ischemia Principal Diagnosis hypertensive emergency Discharge Exam General: awake, alert, no apparent distress, appears younger than stated age Head: Normocephalic, atraumatic ENT: PERRL, EOMI, no pharyngeal exudate, mucous membranes moist Chest: Clear to auscultation, on room air, no adventitious breath sounds Cardiac: Regular rate and rhythm, +few PVCs, no murmur, no JVD, normal peripheral pulses, good capillary refill Abdominal: NABS x 4 quadrants, soft, nondistended, nontender to palpation, no rebound, guarding or tenderness Extremities: +multiple bright red lesions over BLE, +trace peripheral edema, calfs nontender to palpation Psych: Normal mood and affect Neuro: AAO x 3, strength intact bilaterally and rated 5/5, no gross motor deficits, speech is clear, no peripheral sensory deficits Skin: no rash or erythema Discharge Data Allergies Allergy/AdvReac Type Severity Reaction Status Date / Time No Known Allergies Allergy Verified 06/23/19 16:46 Consultations 06/23/19 16:47 ED Decision to Admit Stat 06/23/19 19:18 Consult Case Management - Discharge Planning Routine Consult Neurology Routine Ordered Studies 06/23/19 15:39 CT head/brain wo con Stat 06/23/19 17:45 CT angio head w con Routine CT angio neck with con Routine Hospital Course (1) TIA (transient ischemic attack): -Admit to PCU -This was either a TIA or hypertensive emergency. Symptoms improved on first day of admission. -Stroke order set completed -Neurochecks, speech eval and treat, no residual deficits/weakness, speech is clear, patient reporting visual disturbances now completely resolved. She does have a residual headache and bilateral posterior neck pain -Neurology consulted, Dr. Samuel -Allow for permissive hypertension-patient blood pressure has been elevated as an outpatient, possible that hypertensive urgency cause visual disturbances, see below -CT of the head negative for any acute findings -CT Angio of the head and neck ordered, follow -PT/OT consults, patient functions independently at home -Initial plan was to discharge on day of admission but patient remained with elevated BP. Placed a low dose calcium channel ronnie and low dose liana inhibitor at night. Will monitor her BP as outpatient.. (2) HTN (hypertension): -Possible that hypertensive urgency caused visual disturbances vs TIA? - had previously been placed on valsartan and lisinopril however had adverse effects due to these medications and were discontinued. Pt reports outpt BP has been 150 in the last 4-5 mo, prior to this had a lower SBP ~110. -Continue HCTZ 1.5 tab p.o. QAM -Patient denies any social circumstances, increased anxiety, etc to have elevated her BP. - Cont K+ supplementation with HCTZ -as noted above, will monitor Added amlodipine and lisnopril -EKG reviewed showing sinus tach with first-degree AV block. No signs of ST wave inversions or acute ischemia (3) HLD (hyperlipidemia): -Continue on simvastatin 5 mg QPM (4) Actinic keratosis: - Continue fluorouracil topically BID - Follows with dermatology as an outpatient and was checked in their office earlier today. (5) Osteoarthritis: - Continue Vit D and calcium supplementation (6) DVT prophylaxis: -Teds CODE STATUS full code Total Time Total Time Spent Total Time Spent (In Minutes): 35 Total Time Includes: Examination of the Patient, Discharge Planning and Medication Reconciliation Discharge Plan Discharge Items Patient Disposition: Home - Self-Care Reason For Visit: STROKE Discharge Diagnosis: Hypertensive emergency Activity: Resume your previous activity Non-emergency contact: Primary Care Provider Call non-emergency contact if: you have any medication questions Follow-up/Referrals: Mamadou Samuel III, MD [Physician] - 08/25/19 9:45 am (Please, follow up at [facility] Neurology Office with Dr. Samuel's associate, Katt Johns PA-C, on FridayAugust 25 at 10:00 am (sofie soto 9:45 am). *The office is located at [address] [place] [address] in [place]. If you need to change this appointment, call the office at [phone].) Marisela Haynes CRNP [Primary Care Provider] - 07/02/19 8:50 am (Please, follow up with Marisela WEAVER on FridayJuly 02 at 8:50 am. *If you need to change this appointment, call the office at [phone].) Diet: Heart Healthy Addtl Attending Provider Instructions: It appears you came in with elevated blood pressure which likely which in your symptoms of blurry vision and headache. Thankfully you did not suffer a stroke. Maintenance medication for your blood pressure were added which helped control your Blood pressure while you were here. Will recommend to take amlodipine 2.5 mg once a day in the morning. This above medicine takes about 1 week for it to reach her full antihypertensive effect. Will recommend to cut back triamterene-hydrochorothiazide to one tablet a day. In regards to lisinopril, you were taking 10mg over the summer in which you developed a cough. This occurred almost immediately after you took it. As you tolerated a dose in the hospital, will consider another trial of this medication but at 2.5 mg in the evening. If you develop the nagging cough, you can stop the lisinopril. If you stop the lisinopril, please go back to the original dose of one tablet an d a half of triamterene-hydrochlorothiazide. I will also give you a lab order, to monitor your potassium, to make sure it is at a normal level. Please do lab test next Friday or Friday! Pending Studies at Discharge: No Stand-Alone Forms: My [facility], Smoking Cessation Medications and DC Order Prescriptions: New lisinopril 2.5 mg tablet 2.5 mg PO QPM Qty: 30 RF: 0 amlodipine 2.5 mg tablet 2.5 mg PO DAILY Qty: 30 RF: 0 Continued ascorbic acid (vitamin C) 1,000 mg Tablet 1,000 mg PO QAM RF: 0 fluorouracil 5 % cream 1 applic TOPICAL BID RF: 0 potassium chloride [K-Tab] 10 mEq tablet extended release 30 meq PO QAM RF: 0 simvastatin 5 mg tablet 5 mg PO QPM RF: 0 Multivitamin 50 Plus Tablet 1 tab PO QAM RF: 0 cholecalciferol (vitamin D3) [Vitamin D3] 1,000 unit Tablet,Chewable 1,000 unit PO QAM RF: 0 Caltrate 600 plus D 600 mg (1,500 mg)-800 unit Tablet,Chewable 2 tab PO QAM RF: 0 glucosamine-chondroitin 750-600 mg Tablet,Chewable 1 tab PO BID RF: 0 Changed triamterene-hydrochlorothiazid 37.5-25 mg tablet 1 tab PO QAM Qty: 0 RF: 0 Discharge Orders: Discharge Order (Routine); Ordered 06/25/19 Ordered By: Darío Becker/Other Patient Handouts: Hypertension Control, Amlodipine, Blood Pressure Dc, Lisinopril Oral tablet Admission Data Admit Date/Time: 06/23/19 17:45 Attending Provider: Darío Hwang Admit Provider: Jeanie Negron Primary Care Provider: Marisela Haynes Other Providers: Jeanie Negron ; Mamadou Samuel III Other Interventions: Discharge Summary Assessment (RN) Last Done: 06/25/19 11:57 DC Date/Time DO NOT enter until pt leaves facility: 06/25/19 12:34
== END 2019-06-25 12:34 | disposition home or self-care (01) | DRG 305 ==
LOC: ED 15:03 → 2E 17:45 → SUATTDRO 17:45 → 2E 18:13

== ENCOUNTER 2021-12-19 14:02 | Observation (INO) ==
[2021-12-19 14:37] LABS: Basophils # (auto) 0.05 K/uL (0-0.2); Basophils % (auto) 0.7 %; Eosinophils # (auto) 0.24 K/uL (0-0.5); Eosinophils % (auto) 3.4 %; Hematocrit (blood only) 39.5 % (37-47); Hemoglobin 13.6 g/dL (12.0-16.0); Lymphocytes # (auto) 1.59 K/uL (1.2-3.4); Lymphocytes % (auto) 22.6 %; Mean Corpuscular Hemoglobin 32.8 pg (25-34); Mean Corpuscular Hgb Conc 34.4 g/dL (32-36); Mean Corpuscular Volume 95.2 fL (80-100); Mean Platelet Volume 10.2 fL (7.4-10.4); Monocytes # (auto) 0.59 K/uL (0.11-0.59); Monocytes % (auto) 8.4 %; Neutrophils # (auto) 4.58 K/uL (1.4-6.5); Neutrophils % (auto) 64.9 %; Platelet Count 269 K/uL (130-400); RDW Coefficient of Variation 13.6 % (11.5-14.5); RDW Standard Deviation 47.5 fL (36.4-46.3); Red Blood Count 4.15 M/uL (4.2-5.4); White Blood Count 7.05 K/uL (4.8-10.8)
--- NOTE | 2021-12-19 14:51 | XRay Report ---
XR chest 2V PA/lateral CLINICAL HISTORY: Atypical chest pain. COMPARISON STUDY: Chest radiograph November 05, 2019. FINDINGS: Lung volumes are normal. Lungs are clear. There is no pneumothorax or pleural effusion. Car diac size is at the upper limits of normal. Mediastinal contours are normal. There is no evidence for pulmonary edema. Subtle interstitial prominence is likely chronic. IMPRESSION: No acute cardiopulmonary findings. ACT 112: Negative or not required by law. Electronically signed by: Alex Lester M.D. 12/19/2021 2:50 PM
[2021-12-19 14:57] LABS: Albumin Globulin Ratio 1.3 (0.9-2); BUN Creatinine Ratio 18.8 (10-20); Bilirubin,Total 0.7 mg/dl (0.2-1.0); Calcium 9.2 mg/dl (8.5-10.1); Creatinine Clr Calc Pharmacy 37.7 ml/min; Est GFR (Non-African American) 45.7 ml/min; Potassium 3.8 mmol/L (3.5-5.1)
[2021-12-19] MEDS ORDERED: NITROGLYCERIN 2% OINTMENT 30GM TUBE EXT ONE (15:59)
[2021-12-19] MEDS ORDERED: ASPIRIN CHEW 324 MG PO STA (15:59)
--- NOTE | 2021-12-19 16:05 | Emergency Department Note ---
History of Present Illness General Chief complaint: Chest Pain Stated complaint: CHEST PAIN, HBP 199/94, (IS VERY HARD OF HEARING) Time Seen by Provider: 12/19/21 15:52 Source: patient History of Present Illness Provider complaint: Chest pain Onset (ago): hour(s) Location: chest and left Radiation: back Pain Consistency: + intermittent Maximum Pain Intensity: 5 Quality: + other (Heaviness) Relieved By: + none Exacerbated By: + none Associated symptoms: no cough, no diaphoresis, no fever/chills, no nausea/vomiting or no shortness of breath This is an 81-year-old female presents with chest pain starting approximately 1 PM today. It lasted about an hour. She states it then came back later. She denies any modifying factors. She currently rates it a 2 out of 10 in severity. She describes it as a heaviness in the left side of her chest rating to her back. She denies any associated shortness of breath. She has had no fevers, cough or cold symptoms, abdominal pain, vomiting, diarrhea, or urinary symptoms. She does have chronic swelling to her legs and is currently on furosemide for this. She also noticed today that her blood pressure was very elevated. She was taken off of some of her high blood pressure medications recently by her gamemaster and placed on furosemide. She has been compliant with her medications. She did take a 10 mg tablet of hydralazine prior to arrival. Home Medications Medication Instructions Recorded Confirmed Type ascorbic acid (vitamin C) 1,000 mg 1,000 mg PO QAM 06/23/19 12/19/21 History tablet calcium carbonate 600 mg-vitamin 2 tab PO QAM 06/23/19 12/19/21 History D3 20 mcg (800 unit) chewable tablet (Caltrate 600 plus D) cholecalciferol (vitamin D3) 25 1,000 unit PO QAM 06/23/19 12/19/21 History mcg (1,000 unit) chewable tablet (Vitamin D3) glucosamine 750 mg-chondroitin 600 1 tab PO BID 06/23/19 12/19/21 History mg chewable tablet [id number] 1 tab PO QAM 06/23/19 12/19/21 History tablet (Multivitamin 50 Plus) simvastatin 5 mg tablet 5 mg PO QPM 06/23/19 12/19/21 History mv-min-vit C-ascorb 1.7 mg PO QAM 11/05/19 12/19/21 History Xb-Zko-Vpz-herb #124 334 mg-1.7 mg chewable tablet (Airborne (ascorbate sodium)) fluorouracil 5 % topical cream 1 applic TOPICAL BID 11/26/21 12/19/21 History (Efudex) olmesartan 20 mg tablet 20 mg PO DAILY 11/26/21 12/19/21 History triamcinolone acetonide 0.1 % 1 applic TOPICAL BID 11/26/21 12/19/21 History topical cream furosemide 20 mg tablet 20 mg PO DAILY #30 tab 12/14/21 12/19/21 Rx Allergies Allergy/AdvReac Type Severity Reaction Status Date / Time lisinopril AdvReac Cough Verified 12/19/21 17:55 Past Med/Surg History Medical History Breast cancer HLD (hyperlipidemia) HTN (hypertension) Ovary removal, prophylactic Surgical History History of oophorectomy History of tonsillectomy History of wisdom tooth extraction S/P appendectomy S/P mastectomy, bilateral Family History Mother , age 70 with lung cancer Lung cancer Heart disease Myocardial infarction Father , age 91 Coronary heart disease FH: prostate cancer Brother Aortic aneurysm Bicuspid aortic valve Melanoma TIA (transient ischemic attack) Sister Migraine Social History Smoking Status: Never smoker Second Hand Exposure: No; Hx Alcohol Use: Yes Alcohol type: beer and wine Alcohol Intake Frequency Comment: 1-2 per week Hx Substance Use: No Preferred Language: Bulgarian Communication Ability: Effective Wash Test Checker Required: No Beliefs That Will Affect Care: None Current Living Situation: Spouse current occupational status: retired Other Information That Helps Us Care for You: No 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 Reading glasses only. Upper partial Review of Systems See HPI for pertinent positives & negatives. and A total of 10 systems reviewed and were otherwise negative Physical Exam Vital Signs Vital Signs - 24 hr 12/19/21 14:09 12/19/21 16:03 12/19/21 16:15 Temperature 36.6 C Temperature Source Temporal Artery Scan Pulse Rate 81 77 Pulse Rate from SpO2 Sensor Respiratory Rate 18 18 Respiratory Effort / Characteristics Non-Labored Non-Labored Respiratory Depth Normal Normal Blood Pressure 217/99 H Blood Pressure Mean 138 Blood Pressure Position Lying Pulse Oximetry 98 100 Oxygen Delivery Method Room Air Room Air Sepsis Recent Fever Within 48 Hours No Sepsis New/Unexplained Change in Mental Status No Sepsis Action Taken by Nursing No Action Required 12/19/21 16:21 12/19/21 16:30 12/19/21 17:00 Temperature Temperature Source Pulse Rate 73 72 67 Pulse Rate from SpO2 Sensor 72 72 67 Respiratory Rate 18 19 19 Respiratory Effort / Characteristics Respiratory Depth Blood Pressure 191/87 H Blood Pressure Mean 121 Blood Pressure Position Pulse Oximetry 99 99 99 Oxygen Delivery Method Sepsis Recent Fever Within 48 Hours Sepsis New/Unexplained Change in Mental Status Sepsis Action Taken by Nursing 12/19/21 17:30 12/19/21 18:00 12/19/21 18:30 Temperature Temperature Source Pulse Rate 65 72 74 Pulse Rate from SpO2 Sensor 64 Respiratory Rate 17 20 15 Respiratory Effort / Characteristics Non-Labored Respiratory Depth Normal Blood Pressure 168/97 H Blood Pressure Mean 120 Blood Pressure Position Pulse Oximetry 98 100 99 Oxygen Delivery Method Room Air Sepsis Recent Fever Within 48 Hours Sepsis New/Unexplained Change in Mental Status Sepsis Action Taken by Nursing Constitutional: Vital signs reviewed. Eyes: Pupils are equal round reactive to light. Conjunctiva are noninjected. ENT: Pharynx is clear without erythema or exudate. Mucous membranes are moist. Neck supple without meningeal signs. Respiratory: Clear to auscultation bilaterally. Breath sounds are equal bilaterally. Cardiovascular: Regular rate and rhythm. No rubs or gallops. GI: Soft, nondistended and nontender. Bowel sounds are present. Musculoskeletal: Bilateral lower extremity edema. No lower extremity tenderness. Integumentary: No cyanosis. or jaundice. Neurological: The patient is awake and alert. No focal deficits. Psychiatric: Normal affect. Not anxious appearing. Course Administered Medications Acetaminophen (Acetaminophen 325 Mg Tab) 650 mg PO Q4H PRN PRN Reason: Pain or Fever Stop: 01/18/22 21:04 Last Admin: 12/19/21 21:51 Dose: 650 mg Documented by: [id number] Discontinued Medications Aspirin (Aspirin Chew 324 Mg) 324 mg PO NOW STA Stop: 12/19/21 16:00 Last Admin: 12/19/21 16:27 Dose: 324 mg Documented by: [id number] Nitroglycerin (Nitroglycerin 2% Ointment 30gm Tube) 1 inch EXT NOW ONE Stop: 12/19/21 16:00 Last Admin: 12/19/21 16:27 Dose: 1 inch Documented by: [id number] Medical Decision Making Differential Diagnosis Unstable angina, CO, hypertensive emergency, medication noncompliance, metabolic derangement Medical Records Attestation: I reviewed the patient's medical records. I did perform a limited focused review of portions of the patient's old chart on the electronic medical record. The patient was seen by nephrology on the of this month. She was taken off of triamterene hydrochlorothiazide as well as amlodipine and placed on furosemide instead. She was admitted in 2019 for hypertensive emergency. Home Medications Current Medication List: was personally reviewed by me Laboratory Data Attestation: I reviewed the patient's lab results. Result diagrams: 12/19/21 14:20 12/19/21 14:20 Lab Results 12/19/21 12/19/21 12/19/21 Range/Units 14:20 14:20 14:20 WBC 7.05 (4.8-10.8) K/uL RBC 4.15 L (4.2-5.4) M/uL Hgb 13.6 (12.0-16.0) g/dL Hct 39.5 (37-47) % MCV 95.2 (80-100) fL MCH 32.8 (25-34) pg MCHC 34.4 (32-36) g/dL RDW Std Deviation 47.5 H (36.4-46.3) fL RDW Coeff of Venita 13.6 (11.5-14.5) % Plt Count 269 (130-400) K/uL MPV 10.2 (7.4-10.4) fL Immature Gran % (Auto) 0.0 % Neut % (Auto) 64.9 % Lymph % (Auto) 22.6 % Haakon % (Auto) 8.4 % Eos % (Auto) 3.4 % Baso % (Auto) 0.7 % Neut # (Auto) 4.58 (1.4-6.5) K/uL Lymph # (Auto) 1.59 (1.2-3.4) K/uL Haakon # (Auto) 0.59 (0.11-0.59) K/uL Eos # (Auto) 0.24 (0-0.5) K/uL Baso # (Auto) 0.05 (0-0.2) K/uL Immature Gran # (Auto) 0.00 (0.00-0.02) K/uL Sodium 136 (136-145) mmol/L Potassium 3.8 (3.5-5.1) mmol/L Chloride 100 (98-107) mmol/L Carbon Dioxide 28 (21-32) mmol/L Anion Gap 8 (3-11) BUN 21 (6-23) mg/dl Creatinine 1.12 (0.6-1.2) mg/dl Est Cr Clr Drug Dosing 37.7 ml/min Est GFR ( Amer) 53.0 ml/min Est GFR (Non-Af Amer) 45.7 ml/min BUN/Creatinine Ratio 18.8 (10-20) Glucose 97 (70-99(Fasting)) mg/dl Calcium 9.2 (8.5-10.1) mg/dl Total Bilirubin 0.7 (0.2-1.0) mg/dl AST 20 (13-39) U/L ALT 13 (7-52) U/L Alkaline Phosphatase 70 (34-104) U/L Troponin I High Sens 6.0 (0-14) pg/ml Total Protein 7.0 (6.0-8.3) gm/dl Albumin 4.0 (3.4-5.0) gm/dl Globulin 3.0 (2.5-4.0) gm/dl Albumin/Globulin Ratio 1.3 (0.9-2) Lipase 9 L (11-82) U/L SARS-CoV-2, RNA, NAAT (NEGATIVE) 12/19/21 Range/Units 16:49 WBC (4.8-10.8) K/uL RBC (4.2-5.4) M/uL Hgb (12.0-16.0) g/dL Hct (37-47) % MCV (80-100) fL MCH (25-34) pg MCHC (32-36) g/dL RDW Std Deviation (36.4-46.3) fL RDW Coeff of Venita (11.5-14.5) % Plt Count (130-400) K/uL MPV (7.4-10.4) fL Immature Gran % (Auto) % Neut % (Auto) % Lymph % (Auto) % Haakon % (Auto) % Eos % (Auto) % Baso % (Auto) % Neut # (Auto) (1.4-6.5) K/uL Lymph # (Auto) (1.2-3.4) K/uL Haakon # (Auto) (0.11-0.59) K/uL Eos # (Auto) (0-0.5) K/uL Baso # (Auto) (0-0.2) K/uL Immature Gran # (Auto) (0.00-0.02) K/uL Sodium (136-145) mmol/L Potassium (3.5-5.1) mmol/L Chloride (98-107) mmol/L Carbon Dioxide (21-32) mmol/L Anion Gap (3-11) BUN (6-23) mg/dl Creatinine (0.6-1.2) mg/dl Est Cr Clr Drug Dosing ml/min Est GFR ( Amer) ml/min Est GFR (Non-Af Amer) ml/min BUN/Creatinine Ratio (10-20) Glucose (70-99(Fasting)) mg/dl Calcium (8.5-10.1) mg/dl Total Bilirubin (0.2-1.0) mg/dl AST (13-39) U/L ALT (7-52) U/L Alkaline Phosphatase (34-104) U/L Troponin I High Sens (0-14) pg/ml Total Protein (6.0-8.3) gm/dl Albumin (3.4-5.0) gm/dl Globulin (2.5-4.0) gm/dl Albumin/Globulin Ratio (0.9-2) Lipase (11-82) U/L SARS-CoV-2, RNA, NAAT NEGATIVE (NEGATIVE) Imaging Data Radiologist's Impression: Chest X-Ray 12/19/21 14:12 XR chest 2V PA/lateral CLINICAL HISTORY: Atypical chest pain. COMPARISON STUDY: Chest radiograph November 05, 2019. FINDINGS: Lung volumes are normal. Lungs are clear. There is no pneumothorax or pleural effusion. Cardiac size is at the upper limits of normal. Mediastinal contours are normal. There is no evidence for pulmonary edema. Subtle interstitial prominence is likely chronic. IMPRESSION: No acute cardiopulmonary findings. ACT 112: Negative or not required by law. Electronically signed by: Alex Lester M.D. 12/19/2021 2:50 PM ECG Data Attestation: I personally reviewed and interpreted this ECG as follows: Indication: + chest pain Rate (beats per minute): 84 Rhythm: + normal sinus ECG [place]: + Normal ECG ST segments: + Nonspecific ST abnormalities ECG Findings: no PVCs Comparison ECG Date: from (November 05, 2019) Change: the following changes noted (ST depression slightly more pronounced today in precordial leads) Additional Comments: Repeat twelve-lead EKG performed at 1751 per my interpretation shows normal sinus rhythm at a rate of 70 bpm. She has persistent nonspecific ST changes as noted on previous EKG. T waves are more prominent in the precordial leads. The patient was not having any chest discomfort at that time. MDM Narrative I did evaluate the patient as noted above. The patient is presenting with chest heaviness intermittently since 1 PM today. She has also noticed that her blood pressures fairly elevated although she was just recently taken off of her prior blood pressure medications and placed on furosemide. She is currently having 2 out of 10 chest pain. IV access was established. I did place an order for continuous cardiac monitoring. The monitor showed normal sinus rhythm at a rate of 69 bpm. I did order and personally review the patient's 12-lead EKG as described above. She has some nonspecific changes which were present on her previous EKG. to repeat a twelve-lead EKG which showed some slightly prominent T waves but otherwise no change. She had been given nitroglycerin paste 1 inch to the anterior chest wall and her chest pain had resolved at that time. She was also given aspirin p.o. I did order and personally reviewed the images of the patient's chest x-ray as described above. Her chest x-ray is unremarkable. I did order and review the patient's blood work as noted in the electronic medical record. CBC is unremarkable without leukocytosis or anemia. CMP is unremarkable. High-sensitivity troponin is negative. COVID testing is negative. Her blood pressure did improve down to 170/73. She is not having any chest pain. I did recommend hospitalization for further care and evaluation. I did discuss case with the hospitalist and case assistant. Impression & Plan Acute chest pain, Hypertensive urgency, Abnormal ECG Discharge Plan Visit Data Chief Complaint: Chest Pain Stated Complaint: CHEST PAIN, HBP 199/94, (IS VERY HARD OF HEARING) ED Provider: Piyush Finch Discharge Problem: Acute chest pain, Hypertensive urgency, Abnormal ECG Patient Disposition: Admitted As Inpatient Discharge Instructions Interventions: ED Discharge Assessment Last Done: 12/19/21 20:26
--- NOTE | 2021-12-19 16:11 | Electrocardiogram Report ---
Test Reason : Blood Pressure : / mmHG Vent. Rate : 084 BPM Atrial Rate : 084 BPM P-R Int : 178 ms QRS Dur : 084 ms QT Int : 378 ms P-R-T Axes : 057 005 038 degrees QTc Int : 446 ms Poor data quality, interpretation may be adversely affected Normal sinus rhythm Possible Left atrial enlargement Nonspecific ST abnormality Abnormal ECG When compared with ECG of 05-NOV-2019 00:21, No significant change was found Confirmed by Armaan Giordano ([id number]) on 12/19/2021 4:11:03 PM Referred By: Confirmed By:Dougie Giordano
--- NOTE | 2021-12-19 19:18 | History & Physical Report ---
Date of Service December 19, 2021 Assessment & Plan (1) Chest pain: Plan: Chest pain in the setting of hypertension - without current evidence of organ dysfunction - HScTNI- 6.0 at 1400 - 1700- 8.2 (Which would be about 4 hours after last episode of chest discomfort) - trend through pm - next at 0100 - ECG without acute ST elevation - borderline LVH likely - ECHO in am - trend blood pressures through night and adjust therapy related to symptoms, HScTNI with any ECG changes - 81mg ASA in the morning - decide continuation at discharge - currently not on - further risk stratify in am (2) Hypertension: Plan: Arrived at 190s- slowly has downtrended through the evening - 155/60 on admission - nitro-paste- remove - follow as above - symtpoms and ecg to guide therapy - Olmesartan 40mg daily and Lasix 20mg daily (3) Hyponatremia: Plan: Corrected from nephrology visit - continue daily Lasix (4) HLD (hyperlipidemia): Plan: Continue statin (5) Mitral regurgitation: Plan: Mild on ECHO 2009 - repeat ECHO in morning History of Present Illness Primary Care Provider: MEG Holly 81 YOF with medical history of: HTN, HTN emergency, hyponatremia, HLD, CKD, Hyponatremia, mitral regurge. Patient comes to the hospital today for noting elevated blood pressure at home and onset of chest pain. The patient recently was referred to Nephrology for HTN, CKD, and hyponatremia. Her blood pressure regime was adjusted with stopping her triamterene-HCTZ for the hyponatremia and replaced with Lasix 20mg. Her blood pressure was noted to be elevated to 190s this morning, she called the nephrology office and was referred to the [facility]. This was around 1015- and she was sitting in her chair, this lasted briefly but noted when she took a deep breath in it got worse. She had an onset of left sided chest pain While she was drying her hair while getting ready to come here, she had another episode of chest pain at that time and noted it radiated to her back at the same spot she could not describe the pain other than it hurt- this was around 1300 and continued to around 1400. In the EMD the patient had routine labs performed to include HScTNI- which was negative. She had ECG done without dynamic st changes. She received nitropaste and aspirin. Hospitalist was consulted for admission. Her Blood pressure is 160/80 currently and she is pain free, will order 2 hour HScTNI. As patient last onset of symptoms is difficult to ascertain, will admit to telemetry unit continue to trend her HScTNI 6 hour evaluation. Will obtain ECHO in morning. Her HScTNI and symptoms will guide therapy at this time regarding blood pressure management. Of note patient had a hypertensive urgency a few years ago where she had blurred vision and headache, that resolved with BP control. She was on amlodipine and ERIBERTO previously, changed to Olmesartan for cough and amlodipine was transitioned to triamterene/HCTZ. Currently on Olmesartan and Lasix. COVID test on admission is: NEGATIVE Allergies Allergy/AdvReac Type Severity Reaction Status Date / Time lisinopril AdvReac Cough Verified 12/19/21 17:55 Home Medications Medication Instructions Recorded Confirmed Type ascorbic acid (vitamin C) 1,000 mg 1,000 mg PO QAM 06/23/19 12/19/21 History tablet calcium carbonate 600 mg-vitamin 2 tab PO QAM 06/23/19 12/19/21 History D3 20 mcg (800 unit) chewable tablet (Caltrate 600 plus D) cholecalciferol (vitamin D3) 25 1,000 unit PO QAM 06/23/19 12/19/21 History mcg (1,000 unit) chewable tablet (Vitamin D3) glucosamine 750 mg-chondroitin 600 1 tab PO BID 06/23/19 12/19/21 History mg chewable tablet xjvaabzkukrw-ithqpkqz-orhnjz 1 tab PO QAM 06/23/19 12/19/21 History tablet (Multivitamin 50 Plus) simvastatin 5 mg tablet 5 mg PO QPM 06/23/19 12/19/21 History mv-min-vit C-ascorb 1.7 mg PO QAM 11/05/19 12/19/21 History Ea-Vjc-Qri-herb #124 334 mg-1.7 mg chewable tablet (Airborne (ascorbate sodium)) fluorouracil 5 % topical cream 1 applic TOPICAL BID 11/26/21 12/19/21 History (Efudex) olmesartan 20 mg tablet 20 mg PO DAILY 11/26/21 12/19/21 History triamcinolone acetonide 0.1 % 1 applic TOPICAL BID 11/26/21 12/19/21 History topical cream furosemide 20 mg tablet 20 mg PO DAILY #30 tab 12/14/21 12/19/21 Rx Past Med/Surg History Medical History Breast cancer HLD (hyperlipidemia) HTN (hypertension) Ovary removal, prophylactic Surgical History History of oophorectomy History of tonsillectomy History of wisdom tooth extraction S/P appendectomy S/P mastectomy, bilateral Family History Mother , age 70 with lung cancer Lung cancer Heart disease Myocardial infarction Father , age 91 Coronary heart disease FH: prostate cancer Brother Aortic aneurysm Bicuspid aortic valve Melanoma TIA (transient ischemic attack) Sister Migraine Social History Smoking Status: Never smoker Second Hand Exposure: No; Hx Alcohol Use: Yes Alcohol type: beer and wine Alcohol Intake Frequency Comment: 1-2 per week Hx Substance Use: No Preferred Language: Yakut Communication Ability: Effective Corrections Specialist Required: No Beliefs That Will Affect Care: None Current Living Situation: Spouse current occupational status: retired Other Information That Helps Us Care for You: No 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 Reading glasses only. Upper partial Review of Systems Review of Systems: REVIEW OF SYSTEMS: Constitutional: No fever, sweats or chills Eyes: No diplopia, no worsening or blurred vision ENT: normal hearing, no trouble swallowing Respiratory: No cough, sputum, dyspnea at rest or on exertion Cardiovascular: (+) chest pain with back pain, NO tightness or palpitations Abdomen: No pain, nausea, vomiting, diarrhea or constipation Musculoskeletal: No joint pain, calf pain, swelling Neurologic: No weakness, numbness/tingling, or balance problems Psychiatric: No anxiety or depression Skin: No rash or itch Physical Exam Physical Exam: PHYSICAL EXAM: General: awake, alert, no apparent distress Head: Normocephalic, atraumatic ENT: PERRL, EOMI, no pharyngeal exudate, mucous membranes moist Neuro: AAO x 3, speech clear and appropriate, strength intact bilaterally 5/5, sensation intact and equal all extremities and dermatomes, no pronator drift Chest: equal rise and fall of the chest, no accessory muscle use, no heaves or thrills, Clear to auscultation, on room air, Cardiac: Regular rate and rhythm, telemetry reviewed, skin warm dry, cap refill <3 seconds, peripheral pulses +2 no JVD, grade I systolic murmur best heard right midclavicular, no edema GI: NABS x 4 quadrants, soft, nontender to palpation, no rebound, guarding or tenderness : Spontaneously voiding, no pain, no CVA tenderness, Extremities: Normal inspection, no peripheral edema or erythema, calfs nontender to palpation Psych: Normal mood and affect Skin: no rash or erythema Results & Data Results & Data ([facility]) Vital Signs (Past 12 Hours) Vital Signs Temp Pulse Resp BP Pulse Ox 12/19/21 17:30 65 17 98 12/19/21 17:00 67 19 191/87 H 99 12/19/21 16:30 72 19 99 12/19/21 16:21 73 18 99 12/19/21 16:15 77 18 100 12/19/21 14:09 36.6 C 81 18 217/99 H 98 Laboratory Results Abnormal lab results 12/19/21 12/19/21 Range/Units 14:20 14:20 RBC 4.15 L (4.2-5.4) M/uL RDW Std Deviation 47.5 H (36.4-46.3) fL Lipase 9 L (11-82) U/L Diagnostic Findings Chest X-Ray 12/19/21 14:12 XR chest 2V PA/lateral CLINICAL HISTORY: Atypical chest pain. COMPARISON STUDY: Chest radiograph November 05, 2019. FINDINGS: Lung volumes are normal. Lungs are clear. There is no pneumothorax or pleural effusion. Cardiac size is at the upper limits of normal. Mediastinal contours are normal. There is no evidence for pulmonary edema. Subtle interstitial prominence is likely chronic. IMPRESSION: No acute cardiopulmonary findings. ACT 112: Negative or not required by law. Electronically signed by: Alex Lester M.D. 12/19/2021 2:50 PM Medications Administered Home Medications ascorbic acid (vitamin C) 1,000 mg tablet 1,000 mg PO QAM 11/20/19 [History Confirmed 12/19/21] calcium carbonate 600 mg-vitamin D3 20 mcg (800 unit) chewable tablet (Caltrate 600 plus D) 2 tab PO QAM 06/23/19 [History Confirmed 12/19/21] cholecalciferol (vitamin D3) 25 mcg (1,000 unit) chewable tablet (Vitamin D3) 1,000 unit PO QAM 06/23/19 [History Confirmed 12/19/21] glucosamine 750 mg-chondroitin 600 mg chewable tablet 1 tab PO BID 06/23/19 [History Confirmed 12/19/21] jnzktlprakxc-adzonoaf-ownvxv tablet (Multivitamin 50 Plus) 1 tab PO QAM 06/23/19 [History Confirmed 12/19/21] simvastatin 5 mg tablet 5 mg PO QPM 06/23/19 [History Confirmed 12/19/21] mv-min-vit C-ascorb Ox-Ybh-Jme-herb #124 334 mg-1.7 mg chewable tablet (Airborne (ascorbate sodium)) 1.7 mg PO QAM 11/05/19 [History Confirmed 12/19/21] fluorouracil 5 % topical cream (Efudex) 1 applic TOPICAL BID 11/26/21 [History Confirmed 12/19/21] olmesartan 20 mg tablet 20 mg PO DAILY 11/26/21 [History Confirmed 12/19/21] triamcinolone acetonide 0.1 % topical cream 1 applic TOPICAL BID 11/26/21 [History Confirmed 12/19/21] furosemide 20 mg tablet 20 mg PO DAILY #30 tab 12/14/21 [Rx Confirmed 12/19/21] Discontinued Medications Aspirin (Aspirin Chew 324 Mg) 324 mg PO NOW STA Stop: 12/19/21 16:00 Last Admin: 12/19/21 16:27 Dose: 324 mg Documented by: [id number] Nitroglycerin (Nitroglycerin 2% Ointment 30gm Tube) 1 inch EXT NOW ONE Stop: 12/19/21 16:00 Last Admin: 12/19/21 16:27 Dose: 1 inch Documented by: [id number] ECG Additional Comments: Normal sinus rhythm Possible Left atrial enlargement Possible Anterior infarct , age undetermined Abnormal ECG When compared with ECG of 19-DEC-2021 14:16, No significant change was found Code Status & VTE Plan Code Status CODE: FULL VTE: SCDs, Lovenox 40mg subq daily VTE Prophylaxis Plan VTE Prophylaxis will be ordered: Yes Supervising Physician Co-Signing Physician Notes I personally saw and examined the patient. I verified all kay points and agree with MEG Hameed with the following exceptions and/or additions: 81 year old female admission for chest pain and hypertensive urgency. Currently chest pain free when seen. O/E WD/WN, HS1+2, no murmurs, Chest CTAB, Abdo SNT A/P Hypertensive urgency - Will trend troponins to make sure not hypertensive emergency. Stop Nitro patch and monitor BP. PG Care Time/CCT Total # of Minutes Spent Total Time Spent with Patient: Total time spent is greater than 50% in coordination of care (as documented) at patient's floor/unit and/or counseling patient: Coding Level of Care Code INT OBSERVATION CARE 70M LVL 3 Diagnoses Hypertension I10 Hyponatremia E87.1 HLD (hyperlipidemia) E78.5 Mitral regurgitation I34.0 Chest pain R07.9
[2021-12-19] MEDS ORDERED: SIMVASTATIN 5 MG TAB PO SCH (21:05)
[2021-12-19] MEDS ORDERED: ACETAMINOPHEN 325 MG TAB PO PRN (21:05)
[2021-12-19] MEDS ORDERED: ONDANSETRON INJ 2 MG/ML 2 ML VIAL IV PRN (21:05)
[2021-12-19] MEDS: HEPARIN SOD 5,000 UNIT/0.5 ML VIAL SQ SCH (22:24)
[2021-12-20] MEDS ORDERED: KETOROLAC TROMETHAMINE 15 MG/ML VIAL IV ONE (00:50)
[2021-12-20] MEDS ORDERED: hydrALAZINE HCL 20 MG/ML VIAL IV ONE (01:44)
[2021-12-20 06:50] LABS: Basophils # (auto) 0.05 K/uL (0-0.2); Basophils % (auto) 0.8 %; Eosinophils # (auto) 0.23 K/uL (0-0.5); Eosinophils % (auto) 3.5 %; Hematocrit (blood only) 34.8 % (37-47); Hemoglobin 11.9 g/dL (12.0-16.0); Lymphocytes # (auto) 1.84 K/uL (1.2-3.4); Mean Corpuscular Hemoglobin 32.2 pg (25-34); Mean Corpuscular Hgb Conc 34.2 g/dL (32-36); Mean Corpuscular Volume 94.3 fL (80-100); Mean Platelet Volume 10.3 fL (7.4-10.4); Monocytes # (auto) 0.57 K/uL (0.11-0.59); Monocytes % (auto) 8.7 %; Neutrophils # (auto) 3.87 K/uL (1.4-6.5); Platelet Count 242 K/uL (130-400); RDW Coefficient of Variation 13.6 % (11.5-14.5); Red Blood Count 3.69 M/uL (4.2-5.4); White Blood Count 6.56 K/uL (4.8-10.8)
[2021-12-20 07:09] LABS: Troponin I High Sensitivity 5.6 pg/ml (0-14)
[2021-12-20 07:14] LABS: Calcium 8.7 mg/dl (8.5-10.1); Creatinine Clr Calc Pharmacy 41.9 ml/min; Est GFR (African American) 60.8 ml/min; Est GFR (Non-African American) 52.4 ml/min; Magnesium 1.8 mg/dl (1.7-2.4); Potassium 3.5 mmol/L (3.5-5.1)
[2021-12-20] MEDS: HEPARIN SOD 5,000 UNIT/0.5 ML VIAL SQ SCH (08:05)
[2021-12-20] MEDS ORDERED: CHOLECALCIFEROL 1,000 UNITS 25 MCG TAB PO SCH (09:00)
[2021-12-20] MEDS ORDERED: ASPIRIN 81 MG ECTAB PO SCH (09:00)
[2021-12-20] MEDS ORDERED: CALCIUM 600MG + VIT D 400 IU TAB PO SCH (09:00)
[2021-12-20] MEDS ORDERED: ASCORBIC ACID 500 MG TAB PO SCH (09:00)
[2021-12-20] MEDS ORDERED: OLMESARTAN MEDOXOMIL 40 MG TAB PO SCH (09:00)
[2021-12-20] MEDS ORDERED: FUROSEMIDE 20 MG TAB PO SCH (09:00)
--- NOTE | 2021-12-20 10:13 | XCELERA ---
[id number]
--- NOTE | 2021-12-20 12:22 | Electrocardiogram Report ---
Test Reason : Blood Pressure : / mmHG Vent. Rate : 070 BPM Atrial Rate : 070 BPM P-R Int : 188 ms QRS Dur : 082 ms QT Int : 416 ms P-R-T Axes : 063 014 026 degrees QTc Int : 449 ms Normal sinus rhythm Possible Left atrial enlargement When compared with ECG of 19-DEC-2021 14:16, No significant change was found Confirmed by Armaan Giordano ([id number]) on 12/20/2021 12:22:41 PM Referred By: Stevie Lau Confirmed By:Dougie Giordano
--- NOTE | 2021-12-20 15:23 | Discharge Summary ---
Date of Service December 20, 2021 Admission HPI Per Admitting Provider 81 YOF with medical history of: HTN, HTN emergency, hyponatremia, HLD, CKD, Hyponatremia, mitral regurge. Patient comes to the hospital today for noting elevated blood pressure at home and onset of chest pain. The patient recently was referred to Nephrology for HTN, CKD, and hyponatremia. Her blood pressure regime was adjusted with stopping her triamterene-HCTZ for the hyponatremia and replaced with Lasix 20mg. Her blood pressure was noted to be elevated to 190s this morning, she called the nephrology office and was referred to the EMD. This was around 1015- and she was sitting in her chair, this lasted briefly but noted when she took a deep breath in it got worse. She had an onset of left sided chest pain While she was drying her hair while getting ready to come here, she had another episode of chest pain at that time and noted it radiated to her back at the same spot she could not describe the pain other than it hurt- this was around 1300 and continued to around 1400. In the EMD the patient had routine labs performed to include HScTNI- which was negative. She had ECG done without dynamic st changes. She received nitropaste and aspirin. Hospitalist was consulted for admission. Her Blood pressure is 160/80 currently and she is pain free, will order 2 hour HScTNI. As patient last onset of symptoms is difficult to ascertain, will admit to telemetry unit continue to trend her HScTNI 6 hour evaluation. Will obtain ECHO in morning. Her HScTNI and symptoms will guide therapy at this time regarding blood pressure management. Of note patient had a hypertensive urgency a few years ago where she had blurred vision and headache, that resolved with BP control. She was on amlodipine and ERIBERTO previously, changed to Olmesartan for cough and amlodipine was transitioned to triamterene/HCTZ. Currently on Olmesartan and Lasix. COVID test on admission is: NEGATIVE Principal Diagnosis High blood pressure Chest pain Discharge Exam Constitutional WD/WN, vitals as above Eyes EOM intact bilaterally; no conjunctival abnormality ENMT external ear and nose normal, oropharynx normal Neck trachea midline, no thyromegaly normal visual inspection Respiratory normal respiratory effort, lungs clear to auscultation no respiratory distress Cardiovascular RRR, no murmur, no edema Gastrointestinal (Abdomen) Inspection/Auscultation: abdomen normal to inspection; abdomen not distended Musculoskeletal no cyanosis or clubbing, extremities motor strength 5/5 Skin no rashes, warm and dry Neurologic moves all extremities and awake Psychiatric Orientation: alert, oriented to person and cooperative Discharge Data Allergies Allergy/AdvReac Type Severity Reaction Status Date / Time lisinopril AdvReac Cough Verified 12/19/21 17:55 Consultations 12/19/21 17:42 ED Decision to Admit Stat Hospital Course (1) Hypertension: SBP on arrival was 190 - 220 - slowly has downtrended through the evening. - Presently on olmesartan 40mg daily and Lasix 20mg daily - Discussed with cardiology and nephrology: Plan to discharge on: * Olmesartan 40 mg QAM * Furosemide 20 mg QAM * Amlodipine 2.5 ms HS -> Will see Dr. Lau for a blood pressure check on January 04 and f/u with cardiology on December 28. Both providers in agreement with plan. (2) Chest pain: Chest pain in the setting of hypertension - without current evidence of organ dysfunction. - Troponins negative. - ECG without acute ST elevation - borderline LVH likely - ECHO with normal EF and mild LVH. - Unclear whether chest pain came before or after hypertension. The patient switched the order during our last conversation and indicated maybe the chest pain preceded the high blood pressures. If so, could consider stress test as we treated as if it was high blood pressure causing chest pain. (3) Hyponatremia: Corrected from nephrology visit - Continue daily Lasix (4) HLD (hyperlipidemia): Continue statin (5) Mitral regurgitation: Mild on ECHO 2009 Total Time Total Time Spent Total Time Spent (In Minutes): 35 Discharge Plan Discharge Items Patient Disposition: Home - Self-Care Reason For Visit: CHEST PAIN Discharge Diagnosis: Chest pain and high blood pressure Activity: Resume your previous activity Non-emergency contact: Primary Care Provider, Scale Agent and Heel Burnisher Call non-emergency contact if: your symptoms worsen Follow-up/Referrals: Stevie Lau MD [Physician] - 01/04/22 1:30 pm (Please see Dr. Lau at your previously scheduled appointment to do a blood pressure check.) Marisela Haynes CRNP [Primary Care Provider] - 12/26/21 2:10 pm Diet: Heart Healthy Addtl Attending Provider Instructions: Ms. Baker, You were admitted to the hospital with high blood pressure and chest pain. Your heart enzymes were normal, meaning you did *not* have a heart attack. This is great! Further, the ultrasound of your heart looks really good with a good heart squeeze and healthy heart valves. Your blood pressure was very high very home and was high when you first came in. I think that adding in a low-dose of amlodipine will help your blood pressure normalize. It is not a diuretic, so it will not cause you to have to urinate overnight. I think it is unlikely that you get leg swelling with such a low dose, but if you do, you can use some mild compression stockings. I have spoke with Dr. Gill's office and Dr. Lau, and they are all in agreement with the plan. Please see Dr. Lau at your previously scheduled appointment to do a blood pressure check. Take your blood pressure cuff to make sure it is accurate. Pending Studies at Discharge: No Stand-Alone Forms: My [facility], Smoking Cessation Medications and DC Order Prescriptions: New amlodipine 2.5 mg tablet 2.5 mg PO HS Qty: 30 RF: 0 Continued fluorouracil [Efudex] 5 % cream 1 applic topical BID RF: 0 triamcinolone acetonide 0.1 % cream 1 applic topical BID RF: 0 furosemide 20 mg tablet 20 mg PO DAILY Qty: 30 RF: 2 ascorbic acid (vitamin C) 1,000 mg Tablet 1,000 mg PO QAM RF: 0 simvastatin 5 mg tablet 5 mg PO QPM RF: 0 Multivitamin 50 Plus Tablet 1 tab PO QAM RF: 0 cholecalciferol (vitamin D3) [Vitamin D3] 1,000 unit Tablet,Chewable 1,000 unit PO QAM RF: 0 Caltrate 600 plus D 600 mg (1,500 mg)-800 unit Tablet,Chewable 2 tab PO QAM RF: 0 glucosamine-chondroitin 750-600 mg Tablet,Chewable 1 tab PO BID RF: 0 Airborne (ascorbate sodium) 334-1.7 mg Tablet,Chewable 1.7 mg PO QAM RF: 0 olmesartan 40 mg tablet 40 mg PO DAILY RF: 0 Discharge Orders: Discharge Order (Routine); Ordered 12/20/21 Ordered By: Lester Story Admission Data Admit Date/Time: 12/19/21 18:46 Attending Provider: Lester Story Admit Provider: Shay Major Primary Care Provider: Marisela Haynes Other Providers: Lester Story Other Interventions: Discharge Summary Assessment (RN) Last Done: 12/20/21 14:58 Coding Level of Care Code D/C DAY MANAGEMENT >30 MINS Diagnoses Chest pain R07.9 Hypertension I10 Hyponatremia E87.1 HLD (hyperlipidemia) E78.5 Mitral regurgitation I34.0
--- NOTE | 2021-12-20 18:12 | Electrocardiogram Report ---
Test Reason : Blood Pressure : / mmHG Vent. Rate : 070 BPM Atrial Rate : 070 BPM P-R Int : 192 ms QRS Dur : 088 ms QT Int : 422 ms P-R-T Axes : 084 063 069 degrees QTc Int : 455 ms Normal sinus rhythm When compared with ECG of 20-DEC-2021 01:34, (unconfirmed) No significant change was found Confirmed by Armaan Giordano ([id number]) on 12/20/2021 6:12:03 PM Referred By: Stevie Lau Confirmed By:Dougie Giordano
== END 2021-12-20 15:31 | disposition home or self-care (01) ==
LOC: 2N 14:02 → ED 14:02 → SUATTDRO 18:46 → 2N 20:26